=== PATIENT | female | born 1990 | race Caucasian/White ===

== ENCOUNTER 2017-01-09 09:16 | Emergency (ER) | payer BC ==
[~2017-01-09] VITALS: Ht 157.5 cm; Wt 50.3 kg
[~2017-01-09 09:16] MED LIST: OMEP40CA PO; ONDA8TAB62 SL; PROM1SUP19 PR
[2017-01-09 09:18] VITALS: TEMP 36.7; Ht 157.5 cm; Wt 50.3 kg
[2017-01-09] MEDS ORDERED: KETOROLAC TROMETHAMINE 30 MG/ML VIAL IV STA (10:07)
[2017-01-09] MEDS ORDERED: SODIUM CHLORIDE 0.9% 1000ML 1,000 ML IV STA (10:07)
[2017-01-09 10:28] LABS: MANUAL MICROSCOPIC REQUIRED? YES; URINE APPEARANCE CLOUDY (CLEAR); URINE BILIRUBIN NEG (NEG); URINE COLOR RED; URINE NITRITE NEG (NEG); URINE SPECIFIC GRAVITY 1.015 (1.000-1.030); UROBILINOGEN POS (NEG)
[2017-01-09 10:47] LABS: REVIEW REQ? NO
[2017-01-09 10:56] LABS: URINE BACTERIA NEG (NEG); URINE MUCUS PRESENT (NONE PRSENT); URINE RBC >30 /hpf (0-4)
[2017-01-09 11:30] LABS: BENZODIAZEPINE, URINE NEG (NEG); COCAINE,URINE NEG (NEG); PHENCYCLIDINE, URINE NEG (NEG)
[2017-01-09 11:40] VITALS: BP 135/74; PULSE 80; O2SAT 98
--- NOTE | 2017-01-09 11:43 | DIAGNOSTIC IMAGING REPORT ---
ABDOMEN AND PELVIS CT WITHOUT CONTRAST CT DOSE: 372.37 mGy.cm HISTORY: Right flank pain. TECHNIQUE: Multiaxial CT images of the abdomen and pelvis were performed without the use of intravenous and oral contrast according to the standard department stone protocol. COMPARISON STUDY: Abdomen and pelvis CT 08/08/2016. FINDINGS: The lung bases are clear. The unenhanced liver, spleen, pancreas, and adrenal glands are unremarkable. No renal stones or hydronephrosis. No bowel wall thickening or obstruction. The pelvic organs are unremarkable. No suspicious lytic or blastic osseous lesions. The appendix is surgically absent. Cholecystectomy. IMPRESSION: No renal stones or hydronephrosis. Electronically signed by: Candido Juan M.D. 01/09/2017 11:41 AM Dictated Date/Time: 01/09/2017 11:28 AM
[2017-01-09 11:59] LABS: BUN/CREATININE RATIO 23.3 (10-20); CALCIUM 9.3 mg/dl (8.5-10.1); CREATININE 0.75 mg/dl (0.60-1.20); POTASSIUM 3.3 mmol/L (3.5-5.1)
[2017-01-09 12:09] LABS: HEMATOCRIT 39.7 % (37-47); MEAN CELL VOLUME 88.2 fL (80-100); MEAN CORPUSCULAR HEMOGLOBIN 32.4 pg (25-34); MEAN CORPUSCULAR HGB CONC 36.8 g/dl (32-36); MEAN PLATELET VOLUME 10.9 fL (7.4-10.4); PLATELET COUNT 213 K/uL (130-400)
[2017-01-09 12:18] LABS: COMPLETE YES; EOSINOPHIL % 0.9 %; LYMPH ABS # 2.35 K/uL (1.2-3.4); LYMPHOCYTE % 45.1 %; NEUTROPHILS % 32.7 %; VARIANT LYM ABS # 0.74 K/uL; VARIANT LYMPHOCYTE % 14.2 %
--- NOTE | 2017-01-09 16:35 | EMERGENCY ROOM VISIT NOTE ---
History Report prepared by Christin: Charlee Cummins Under the Supervision of: Dr. Madhav Walker M.D. First contact with patient: 09:30 Chief Complaint: URINARY SYMPTOMS Stated Complaint: SHARP PAIN IN RIGHT SIDE OF ABD, NAUSEA Nursing Triage Summary: uti symptoms started yesterday. frequent urination, painful. this morning I saw blood in my pee History of Present Illness The patient is a 26 year old female who presents to the Emergency Room with complaints of intermittent right flank pain that began a couple of days ago. She notes that the pain is sharp and lasts for several hours at a time. Yesterday, her pain was worse. She notes that her pain is worse when she urinates. She denies dysuria. Early this morning around 2:30AM, she had a fever of 101 and took Tylenol. When she woke up this morning, she noticed some blood in her urine. The patient believes she has a history of kidney stones. There is a family history of kidney stones. The patient has chronic abdominal pain for which she follows up with Dr. Flannery of GI. She has a history of H. pylori and gastric ulcers. Her chronic abdominal pain is typically diffuse and not localized to her right side. Denies vomiting or other complaints. Source of History: patient Onset: a couple days ago Position: other (right flank) Quality: sharp Timing: intermittent Modifying Factors (Worsening): urination Associated Symptoms: + fevers (temp of 101), + urinary symptoms (hematuria) , No vomiting Review of Systems See HPI for pertinent positives & negatives. A total of 10 systems reviewed and were otherwise negative. Past Medical & Surgical Medical Problems: (1) Abdominal pain (2) Chronic constipation (3) Depression (4) Epigastric abdominal pain (5) Fall down stairs (6) GERD (gastroesophageal reflux disease) (7) H. pylori infection (8) Head pain (9) Herniated nucleus pulposis of lumbosacral region (10) Hx of migraines (11) Nausea & vomiting (12) Neck pain (13) Symptoms involving urinary system (14) Urinary tract infection Surgical Problems: (1) H/O colonoscopy (2) H/O esophagogastroduodenoscopy (3) Hx of umbilical hernia repair (4) Previous section (5) S/P appendectomy (6) S/P appendectomy (7) S/P section (8) S/P cholecystectomy (9) S/P laparoscopic cholecystectomy (10) S/P tonsillectomy Family History Cancer Diabetes mellitus Gallbladder disease Hypertension Kidney disease Kidney stones Social History Smoking Status: Current Every Day Smoker Alcohol Use: occasionally Drug Use: cocaine, marijuana Marital Status: Housing Status: lives with family Occupation Status: other Current/Historical Medications Scheduled Omeprazole (Prilosec), 40 MG PO BID Scheduled PRN Lorazepam (Ativan), 1 MG PO BID PRN for Anxiety Allergies Coded Allergies: Prochlorperazine (Verified Allergy, Intermediate, Panic Attack, 10/03/16) Acetaminophen (Unverified Allergy, Unknown, unknown, 10/03/16) Polyethylene Glycol (Unverified Allergy, Unknown, UNKNOWN, 10/03/16) Sodium Sulfate (Unverified Allergy, Unknown, UNKNOWN, 10/03/16) Hydrocodone (Verified Adverse Reaction, Unknown, gi upset/emesis, 10/03/16 ) pt Uncoded Allergies: BOWEL PREP (Allergy, Unknown, HIVES, 01/10/15) Physical Exam Vital Signs Date Time Temp Pulse Resp B/P Pulse Ox O2 Delivery O2 Flow Rate FiO2 01/09/17 11:40 80 16 135/74 98 Room Air 01/09/17 09:18 36.7 110 18 113/81 98 Room Air Physical Exam Constitutional: Vital signs reviewed. Eyes: Pupils are equal round reactive to light. Conjunctiva are noninjected. ENT: Pharynx is clear without erythema or exudate. Mucous membranes are moist. Neck supple without meningeal signs. Respiratory: Clear to auscultation bilaterally. Breath sounds are equal bilaterally. Cardiovascular: Regular rate and rhythm. No rubs or gallops. GI: Soft, nondistended and nontender. Bowel sounds are present. Musculoskeletal: No peripheral edema. No lower extremity tenderness. No CVA tenderness. Integumentary: No cyanosis. Neurological: The patient is awake and alert. No focal deficits. Psychiatric: Normal affect. Medical Decision & Procedures ER Provider Diagnostic Interpretation: Radiology results as stated below per my review and the radiologist's interpretation: ABDOMEN AND PELVIS CT WITHOUT CONTRAST CT DOSE: 372.37 mGy.cm HISTORY: Right flank pain. TECHNIQUE: Multiaxial CT images of the abdomen and pelvis were performed without the use of intravenous and oral contrast according to the standard department stone protocol. COMPARISON STUDY: Abdomen and pelvis CT 08/08/2016. FINDINGS: The lung bases are clear. The unenhanced liver, spleen, pancreas, and adrenal glands are unremarkable. No renal stones or hydronephrosis. No bowel wall thickening or obstruction. The pelvic organs are unremarkable. No suspicious lytic or blastic osseous lesions. The appendix is surgically absent. Cholecystectomy. IMPRESSION: No renal stones or hydronephrosis. Electronically signed by: Candido Juan M.D. 01/09/2017 11:41 AM Dictated Date/Time: 01/09/2017 11:28 AM Laboratory Results 01/09/17 10:55 Red Blood Count 4.50, Mean Corpuscular Volume 88.2, Mean Corpuscular Hemoglobin 32.4, Mean Corpuscular Hemoglobin Concent 36.8, Mean Platelet Volume 10.9 01/09/17 10:55 Test 01/09/17 10:00 01/09/17 10:55 Urine Color RED Urine Appearance CLOUDY (CLEAR) Urine pH 7.0 (4.5-7.5) Urine Specific [place] 1.015 (1.000-1.030) Urine Protein 2+ (NEG) Urine Glucose (UA) NEG (NEG) Urine Ketones 2+ (NEG) Urine Occult Blood 3+ (NEG) Urine Nitrite NEG (NEG) Urine Bilirubin NEG (NEG) Urine Urobilinogen POS (NEG) Urine Leukocyte Esterase NEG (NEG) Urine RBC >30 /hpf (0-4) Urine WBC 1-5 /hpf (0-5) Urine Epithelial Cells >30 /lpf (0-5) Urine Bacteria NEG (NEG) Urine Mucus PRESENT (NONE PRSENT) Urine Test NEG (NEG) Urine Opiates Screen NEG (NEG) Urine Methadone, Qualitative NEG (NEG) Urine Barbiturates NEG (NEG) Urine Phencyclidine (PCP) Level NEG (NEG) Ur Amphetamine/Methamphetamine POS (NEG) MDMA (Ecstasy) Screen NEG (NEG) Urine Benzodiazepines Screen NEG (NEG) Urine Cocaine Metabolite NEG (NEG) Urine Marijuana (THC) POS (NEG) White Blood Count 5.20 K/uL (4.8-10.8) Red Blood Count 4.50 M/uL (4.2-5.4) Hemoglobin 14.6 g/dL (12.0-16.0) Hematocrit 39.7 % (37-47) Mean Corpuscular Volume 88.2 fL (80-100) Mean Corpuscular Hemoglobin 32.4 pg (25-34) Mean Corpuscular Hemoglobin Concent 36.8 g/dl (32-36) Platelet Count 213 K/uL (130-400) Mean Platelet Volume 10.9 fL (7.4-10.4) RDW Standard Deviation 39.8 fL (36.4-46.3) RDW Coefficient of Variation 12.4 % (11.5-14.5) Nucleated RBC Absolute Count (auto) 0.00 K/uL (0-0) Neutrophils % (Manual) 32.7 % Lymphocytes % (Manual) 45.1 % Variant Lymphocytes % (manual) 14.2 % Monocytes % (Manual) 7.1 % Eosinophils % (Manual) 0.9 % Nucleated Red Blood Cells % 0.0 % Neutrophils # (Manual) 1.70 K/uL (1.4-6.5) Total Absolute Neutrophils 1.70 K/uL (1.4-6.5) Lymphocytes # (Manual) 2.35 K/uL (1.2-3.4) Absolute Variant Lymphocytes 0.74 K/uL Total Absolute Lymphocytes 3.08 K/uL (1.2-3.4) Monocytes # (Manual) 0.37 K/uL (0.11-0.59) Eosinophils # (Manual) 0.05 K/uL (0-0.5) Red Blood Cell Morphology Unremarkable Anion Gap 11.0 mmol/L (3-11) Est Creatinine Clear Calc Drug Dose 88.4 ml/min Estimated GFR () 125.7 Estimated GFR (Non- 108.5 BUN/Creatinine Ratio 23.3 (10-20) Calcium Level 9.3 mg/dl (8.5-10.1) Total Bilirubin 2.5 mg/dl (0.2-1) Direct Bilirubin 0.2 mg/dl (0-0.2) Aspartate Amino Transf (AST/SGOT) 13 U/L (15-37) Alanine Aminotransferase (ALT/SGPT) 18 U/L (12-78) Alkaline Phosphatase 61 U/L (45-117) Total Protein 7.4 gm/dl (6.4-8.2) Albumin 4.1 gm/dl (3.4-5.0) Lipase 124 U/L (73-393) Laboratory results as reviewed by me. Medications Administered Medications (Trade) Dose Ordered Sig/Lindsey Route Start Time Stop Time Status Last Admin Dose Admin Ketorolac Tromethamine 10 mg 10 mg NOW STAT IV 01/09/17 10:07 01/09/17 10:10 DC 01/09/17 11:04 10 MG Sodium Chloride (Nss 1000ml) 1,000 ml @ 999 mls/hr Q1H1M STAT IV 01/09/17 10:07 01/09/17 11:07 DC 01/09/17 10:07 999 MLS/HR ED Course 1003: The patient was evaluated in room B3. A complete history and physical exam was performed. 1007: Ordered NSS 1000 ml @ 999 mls/hr IV, Toradol Inj 10 mg IV. 1235: I reassessed the patient and discussed test results. The patient refused urine catheterization but she denies dysuria. She will follow up with her doctor. The patient was discharged home Medical Decision This is a 26-year-old female who presents with right-sided flank pain. Differential diagnosis includes renal colic, hydronephrosis, UTI, pyelonephritis , ectopic , ovarian cyst. I did perform a limited focused review of portions of the patient's old chart on the electronic medical record. She was here for abdominal pain in September of last year. She has a history of chronic abdominal pain. She had a positive urine tox screen for cocaine and marijuana. She is followed by Dr. Flannery of GI for her abdominal pain. She had a CT scan of the abdomen and pelvis in July of last year which showed no acute findings. I did evaluate the patient as noted above. IV access was established. I did treat the patient with IV Toradol and normal saline IV. I did order and personally review the patient's urinalysis as described above. It does appear to be a contaminated specimen but there is no evidence of nitrites or leukocyte esterase. No increased wbc's. I did order a cath urine specimen but the patient refused. A urine culture was sent. The patient denies having any frequency, urgency or burning on urination. I did order and review the patient' s blood work as noted in the electronic medical record. Her white blood cell count is not elevated. After discussion with the patient, I did order a CT of the abdomen and pelvis. I did review the images myself as well as the radiology report as described above. There is no evidence of acute intra- abdominal or pelvic process. I did discuss the test results with the patient. I did recommend close follow up with her doctor. She was discharged in good condition. Impression Primary Impression: Right flank pain Scribe Attestation The scribe's documentation has been prepared under my direct and personally reviewed by me in its entirety. I confirm that the note above accurately reflects all work, treatment, procedures, and medical decision making performed by me. Departure Information Dispostion Home / Self-Care Referrals Edwin Sauer M.D. (PCP) Patient Instructions ED Flank Pain Uncertain Cause, My [facility] Additional Instructions You have been examined and treated today on an emergency basis only. This is not a substitute for, or an effort to provide, complete comprehensive medical care. It is impossible to recognize and treat all injuries or illnesses in a single emergency department visit. It is therefore important that you follow up closely with your physician and/or GI physician. Call as soon as possible for an appointment. Return for worsening symptoms or if you develop fever, vomiting , or any other concerning symptoms.
--- NOTE | 2017-01-11 14:24 | Pharmacy Progress Note ---
ED Pharmacist Culture FollowUp Date of Service: Jan 11, 2017. Urine cx obtained 01/09/17 is growing CoN Staph not saprophytic. Per provider's note, it was not believed the patient had a UTI as she had no c/ o frequency, urgency or burning on urination. Also her UA was negative for Nitrates and LE, only had 1-5 WBC and there were > 30epis present likely indicating contamination w/ skin fouzia. No action required as this is likely a contaminant.
[2017-03-20] MEDS ORDERED: ATV/1 PO (01:14)
[2017-03-20] MEDS ORDERED: OMEP40CA41 PO (10:09)
== END 2017-01-09 12:49 | disposition home or self-care (01) ==
LOC: C.EDB 09:17
DX: R10.9 Unspecified abdominal pain (principal); K21.9 Gastro-esophageal reflux disease without esophagitis; F17.200 Nicotine dependence, unspecified, uncomplicated; Z87.442 Personal history of urinary calculi; Z87.19 Personal history of other diseases of the digestive system; Z84.1 Family history of disorders of kidney and ureter; Z83.3 Family history of diabetes mellitus; Z82.49 Family history of ischemic heart disease and other diseases of the circulatory system

== ENCOUNTER 2017-03-03 08:45 | Emergency (ER) | payer BC ==
[~2017-03-03] VITALS: Ht 154.9 cm; Wt 51.8 kg
[2017-03-03 08:47] VITALS: TEMP 36.3; Ht 154.9 cm; Wt 51.8 kg
[2017-03-03] MEDS ORDERED: AMPICILLIN/SULBACTAM SOD INJ 1,500 MG in SODIUM CHLORIDE 0.9% 50ML 50 ML IV STA (09:24)
[2017-03-03] MEDS ORDERED: ONDANSETRON INJ 2 MG/ML 2 ML VIAL IV STA (09:24)
[2017-03-03] MEDS ORDERED: SODIUM CHLORIDE 0.9% 1000ML 1,000 ML IV STA ×2 (09:24)
[2017-03-03] MEDS ORDERED: KETOROLAC TROMETHAMINE 30 MG/ML VIAL IV STA (09:28)
[2017-03-03 09:34] LABS: BASO % 0.1 %; BASO ABS # 0.01 K/uL (0-0.2); COMPLETE YES; EOS % 0.5 %; HEMATOCRIT 44.7 % (37-47); IG% 0.3 %; LYMPH % 23.4 %; LYMPH ABS # 3.34 K/uL (1.2-3.4); MEAN CELL VOLUME 90.5 fL (80-100); MEAN CORPUSCULAR HGB CONC 36.5 g/dl (32-36); MEAN PLATELET VOLUME 11.6 fL (7.4-10.4); MONO % 6.7 %; PLATELET COUNT 214 K/uL (130-400); RED BLOOD COUNT 4.94 M/uL (4.2-5.4); WHITE BLOOD COUNT 14.26 K/uL (4.8-10.8)
[2017-03-03 09:42] LABS: BUN/CREATININE RATIO 8.4 (10-20); CALCIUM 9.6 mg/dl (8.5-10.1); CREATININE 0.82 mg/dl (0.60-1.20); POTASSIUM 3.8 mmol/L (3.5-5.1)
[2017-03-03 09:45] LABS: ALB/GLOB RATIO 1.2 (0.9-2)
--- NOTE | 2017-03-03 10:26 | EMERGENCY ROOM VISIT NOTE ---
History Report prepared by Ljibcesario: Hector Roche Under the Supervision of: Dr. Scottie Godinez M.D. First contact with patient: 09:20 Chief Complaint: VOMITING Stated Complaint: VOMITING, PAIN ALL OVER, FEVER, FEELING FAINT Nursing Triage Summary: Pt states she woke up this morning and had three episodes of vomiting and pain in her jaw. Pt states, "I don't know if I have an infection in my tooth (pointing to left front tooth)." History of Present Illness The patient is a 26 year old female who presents to the Emergency Room with complaints of recurrent vomiting that started this morning. The patient had three episodes of vomiting. She woke up with chills and nausea. The patient denies cough, congestion, sore throat, rhinorrhea, abdominal pain, or urinary symptoms. She notes that she has left upper dental pain, especially with chewing. She has not been on an antibiotics for the tooth but she has been for past dental infections. The patient recently switched to a new dentist. She denies the possibility of . Source of History: patient Onset: this morning Position: other (GI) Quality: other (vomiting) Timing: other (three episodes) Associated Symptoms: + chills, + nausea, No abdominal pain, No cough, No sorethroat, No urinary symptoms Review of Systems See HPI for pertinent positives & negatives. A total of 10 systems reviewed and were otherwise negative. Past Medical & Surgical Medical Problems: (1) Abdominal pain (2) Chronic constipation (3) Depression (4) Epigastric abdominal pain (5) Fall down stairs (6) GERD (gastroesophageal reflux disease) (7) H. pylori infection (8) Head pain (9) Herniated nucleus pulposis of lumbosacral region (10) Hx of migraines (11) Nausea & vomiting (12) Neck pain (13) Symptoms involving urinary system (14) Urinary tract infection Surgical Problems: (1) H/O colonoscopy (2) H/O esophagogastroduodenoscopy (3) Hx of umbilical hernia repair (4) Previous section (5) S/P appendectomy (6) S/P appendectomy (7) S/P section (8) S/P cholecystectomy (9) S/P laparoscopic cholecystectomy (10) S/P tonsillectomy Family History Cancer Diabetes mellitus Gallbladder disease Hypertension Kidney disease Kidney stones Social History Smoking Status: Current Every Day Smoker Alcohol Use: occasionally Drug Use: cocaine, marijuana Marital Status: Housing Status: lives with family Occupation Status: other Current/Historical Medications Scheduled Amoxicillin & Pot Clavulanate (Augmentin 875-125 mg), 875 MG PO BID Omeprazole (Prilosec), 40 MG PO BID Scheduled PRN Lorazepam (Ativan), 1 MG PO BID PRN for Anxiety Promethazine Hcl (Phenergan), 25 MG PO Q6H PRN for Nausea Allergies Coded Allergies: Prochlorperazine (Verified Allergy, Intermediate, Panic Attack, 03/03/17) Acetaminophen (Unverified Allergy, Unknown, unknown, 03/03/17) Polyethylene Glycol (Unverified Allergy, Unknown, UNKNOWN, 03/03/17) Sodium Sulfate (Unverified Allergy, Unknown, UNKNOWN, 03/03/17) Hydrocodone (Verified Adverse Reaction, Unknown, gi upset/emesis, 03/03/17) pt Uncoded Allergies: BOWEL PREP (Allergy, Unknown, HIVES, 01/10/15) Physical Exam Vital Signs Date Time Temp Pulse Resp B/P Pulse Ox O2 Delivery O2 Flow Rate FiO2 03/03/17 12:54 97 95/64 99 03/03/17 11:33 101 16 101/65 98 Room Air 03/03/17 10:43 113 18 95/61 99 Room Air 03/03/17 08:47 36.3 110 20 110/76 100 Room Air Physical Exam GENERAL: Patient is in no acute distress. HEENT: No acute trauma, normocephalic atraumatic, mucous membranes moist, no nasal congestion, no scleral icterus, no throat erythema or exudate, poor dentition with a decaying left upper first incisor, no drainable abscess seen, no swelling to the floor of the mouth. NECK: No stridor, no adenopathy, no meningismus, trachea is midline. LUNGS: Clear to auscultation bilaterally, no wheeze, no rhonchi, breath sounds equal. HEART: Tachycardic with a regular rhythm and no murmurs. ABDOMEN: Soft, nontender, bowel sounds positive, no hernias, no peritonitis. EXTREMITIES: No cyanosis or edema, full range of motion of all the joints without pain or difficulty, no signs for acute trauma. NEUROLOGIC: Oriented x 3, no acute motor or sensory deficits, no focal weakness. SKIN: No rash, no jaundice, no diaphoresis. Medical Decision & Procedures Laboratory Results 03/03/17 09:00 Red Blood Count 4.94, Mean Corpuscular Volume 90.5, Mean Corpuscular Hemoglobin 33.0, Mean Corpuscular Hemoglobin Concent 36.5, Mean Platelet Volume 11.6, Neutrophils (%) (Auto) 69.0, Lymphocytes (%) (Auto) 23.4, Monocytes (%) (Auto) 6.7, Eosinophils (%) (Auto) 0.5, Basophils (%) (Auto) 0.1, Neutrophils # (Auto) 9.84, Lymphocytes # (Auto) 3.34, Monocytes # (Auto) 0.96, Eosinophils # (Auto) 0.07, Basophils # (Auto) 0.01 03/03/17 09:00 Test 03/03/17 09:00 03/03/17 11:36 White Blood Count 14.26 K/uL (4.8-10.8) Red Blood Count 4.94 M/uL (4.2-5.4) Hemoglobin 16.3 g/dL (12.0-16.0) Hematocrit 44.7 % (37-47) Mean Corpuscular Volume 90.5 fL (80-100) Mean Corpuscular Hemoglobin 33.0 pg (25-34) Mean Corpuscular Hemoglobin Concent 36.5 g/dl (32-36) Platelet Count 214 K/uL (130-400) Mean Platelet Volume 11.6 fL (7.4-10.4) Neutrophils (%) (Auto) 69.0 % Lymphocytes (%) (Auto) 23.4 % Monocytes (%) (Auto) 6.7 % Eosinophils (%) (Auto) 0.5 % Basophils (%) (Auto) 0.1 % Neutrophils # (Auto) 9.84 K/uL (1.4-6.5) Lymphocytes # (Auto) 3.34 K/uL (1.2-3.4) Monocytes # (Auto) 0.96 K/uL (0.11-0.59) Eosinophils # (Auto) 0.07 K/uL (0-0.5) Basophils # (Auto) 0.01 K/uL (0-0.2) RDW Standard Deviation 40.7 fL (36.4-46.3) RDW Coefficient of Variation 12.3 % (11.5-14.5) Immature Granulocyte % (Auto) 0.3 % Immature Granulocyte # (Auto) 0.04 K/uL (0.00-0.02) Anion Gap 7.0 mmol/L (3-11) Est Creatinine Clear Calc Drug Dose 77.0 ml/min Estimated GFR () 112.9 Estimated GFR (Non- 97.4 BUN/Creatinine Ratio 8.4 (10-20) Calcium Level 9.6 mg/dl (8.5-10.1) Total Bilirubin 1.1 mg/dl (0.2-1) Aspartate Amino Transf (AST/SGOT) 9 U/L (15-37) Alanine Aminotransferase (ALT/SGPT) 18 U/L (12-78) Alkaline Phosphatase 67 U/L (45-117) Total Protein 8.5 gm/dl (6.4-8.2) Albumin 4.7 gm/dl (3.4-5.0) Globulin 3.8 gm/dl (2.5-4.0) Albumin/Globulin Ratio 1.2 (0.9-2) Urine Color YELLOW Urine Appearance CLOUDY (CLEAR) Urine pH 7.5 (4.5-7.5) Urine Specific [place] 1.010 (1.000-1.030) Urine Protein NEG (NEG) Urine Glucose (UA) NEG (NEG) Urine Ketones NEG (NEG) Urine Occult Blood NEG (NEG) Urine Nitrite NEG (NEG) Urine Bilirubin NEG (NEG) Urine Urobilinogen NEG (NEG) Urine Leukocyte Esterase NEG (NEG) Urine WBC (Auto) 5-10 /hpf (0-5) Urine RBC (Auto) 0-4 /hpf (0-4) Urine Hyaline Casts (Auto) 1-5 /lpf (0-5) Urine Epithelial Cells (Auto) >30 /lpf (0-5) Urine Bacteria (Auto) 2+ (NEG) Laboratory results reviewed by me. Medications Administered Medications (Trade) Dose Ordered Sig/Lindsey Route Start Time Stop Time Status Last Admin Dose Admin Ondansetron HCl 4 mg 4 mg NOW STAT IV 03/03/17 09:24 03/03/17 09:26 DC 03/03/17 09:35 4 MG Sodium Chloride 1,000 ml @ 999 mls/hr Q1H1M STAT IV 03/03/17 09:24 03/03/17 10:24 DC 03/03/17 09:34 999 MLS/HR Sodium Chloride 1,000 ml @ 200 mls/hr Q5H STAT IV 03/03/17 09:24 03/03/17 13:34 DC 03/03/17 10:38 200 MLS/HR Ampicillin Sodium/ Sulbactam Sodium/ Sodium Chloride (Unasyn Inj/Nss 50ml) 54 ml @ 100 mls/hr NOW STAT IV 03/03/17 09:24 03/03/17 09:56 DC 03/03/17 09:44 100 MLS/HR Ketorolac Tromethamine 30 mg 30 mg NOW STAT IV 03/03/17 09:28 03/03/17 09:29 DC 03/03/17 09:35 30 MG Promethazine HCl/ Sodium Chloride (Phenergan Inj/ Nss 50ml) 50.5 ml @ 204 mls/hr NOW STAT IV 03/03/17 10:56 03/03/17 11:10 DC 03/03/17 11:31 204 MLS/HR Morphine Sulfate (MoRPHine SULFATE INJ) 4 mg Q15M PRN IV 03/03/17 11:00 03/03/17 13:34 DC 03/03/17 11:31 4 MG Oxycodone HCl (Roxicodone Immediate Rel 5MG Home Pack) 1 homepack UD ONCE PO 03/03/17 12:30 03/03/17 12:31 DC 03/03/17 12:48 1 HOMEPACK ED Course 0923: The patient was evaluated in room B9. A complete history and physical exam was performed. 0924: Ampicillin sodium / Sulbactam Sodium 1500 mg / NSS 54 ml @ 100 mls/hr IV, NSS 1000 ml @ 200 mls/hr, NSS 1000 ml @ 999 mls/hr, Zofran 4 mg IV. 0928: Toradol 30 mg IV. 1056: Promethazine 12.5 mg / NSS 50.5 ml @ 204 mls/hr 1100: Morphine Sulfate 4 mg IV. 1222: The prescription drug monitoring program was evaluated for this patient. No issues identified. 1230: Oxycodone IR 5 mg PO homepack. Medical Decision Differential diagnosis includes dehydration, dental abscess, dental infection, electrolyte imbalance, anemia, UTI, viral illness. There is a moderate leukocytosis which could be consistent with infection or maybe just her vomiting. No anemia. No significant electrolyte abnormality, kidney failure or hepatitis. Urinalysis shows contamination, no obvious infection. The patient received IV saline, IV Zofran, IV Toradol and IV Unasyn. She eventually was given a dose of IV Phenergan and IV morphine. The patient feels improved and is doing well. Her vital signs have improved. She is being discharged on Augmentin twice a day for 10 days. Phenergan for nausea. An oxycodone home pack was given for pain control. She will see a dentist as soon as possible and return here for worsening symptoms. Patient appears to have a dental infection, she has been treated and is feeling improved. [place] Drug Monitoring Program Search Results: patient reviewed within database, no issues identified Impression Primary Impression: Vomiting Additional Impressions: Dehydration Dental infection Scribe Attestation The scribe's documentation has been prepared under my direction and personally reviewed by me in its entirety. I confirm that the note above accurately reflects all work, treatment, procedures, and medical decision making performed by me. Departure Information Dispostion Home / Self-Care Prescriptions Promethazine Hcl (Phenergan) 25 Mg Tab 25 MG PO Q6H Y for Nausea, #15 TAB Prov: Scottie Godinez M.D. 03/03/17 Amoxicillin & Pot Clavulanate (Augmentin 875-125 mg) 1 Tab Tab 875 MG PO BID for 10 Days, #20 TAB Prov: Scottie Godinez M.D. 03/03/17 Referrals Edwin Sauer M.D. (PCP) Forms HOME CARE DOCUMENTATION FORM, IMPORTANT VISIT INFORMATION, Work Instructions Patient Instructions My [facility] Additional Instructions fluids rest oxy ir 1 tab every 4 hours for pain use otc pain meds warm compresses may help phenergan 1 tab every 6 hours for nausea augmentin 2x per day for 10 days return if worsening see dentist jasmine as discussed Problem Qualifiers
[2017-03-03] MEDS ORDERED: PROMETHAZINE HCL INJ 12.5 MG in SODIUM CHLORIDE 0.9% 50ML 50 ML IV STA (10:56)
[2017-03-03] MEDS ORDERED: MoRPHine SULFATE 4 MG/ML 1 ML CARP\\VIAL IV PRN (11:00)
[2017-03-03 11:57] LABS: URINE APPEARANCE CLOUDY (CLEAR); URINE BILIRUBIN NEG (NEG); URINE COLOR YELLOW; URINE EPITHELIAL CELL AUTO >30 /lpf (0-5); URINE NITRITE NEG (NEG); URINE PH 7.5 (4.5-7.5); UROBILINOGEN NEG (NEG); ZZUR CULT IF INDIC CLEAN CATCH YES
[2017-03-03 11:58] LABS: MANUAL MICROSCOPIC REQUIRED? NO; REVIEW REQ? NO
[2017-03-03] MEDS ORDERED: AMOX875T PO (12:27)
[2017-03-03] MEDS ORDERED: PROM25TA9 PO (12:27)
[2017-03-03] MEDS ORDERED: OXYCODONE IR HOME PACK PO ONE (12:30)
[2017-03-03 12:54] VITALS: BP 95/64; PULSE 97; O2SAT 99
[2017-03-20] MEDS ORDERED: ATV/1 PO (01:14)
[2017-03-20] MEDS ORDERED: OMEP40CA41 PO (10:09)
== END 2017-03-03 12:55 | disposition home or self-care (01) ==
LOC: C.EDB 08:47
DX: R11.2 Nausea with vomiting, unspecified (principal); E86.0 Dehydration; K04.7 Periapical abscess without sinus; K21.9 Gastro-esophageal reflux disease without esophagitis; F17.200 Nicotine dependence, unspecified, uncomplicated; Z87.440 Personal history of urinary (tract) infections; Z86.19 Personal history of other infectious and parasitic diseases; Z91.81 History of falling; Z90.49 Acquired absence of other specified parts of digestive tract; Z98.891 History of uterine scar from previous surgery; Z90.89 Acquired absence of other organs; Z98.890 Other specified postprocedural states; Z83.3 Family history of diabetes mellitus; Z82.49 Family history of ischemic heart disease and other diseases of the circulatory system; Z84.1 Family history of disorders of kidney and ureter; Z79.899 Other long term (current) drug therapy

== ENCOUNTER 2017-03-20 21:46 | Emergency (ER) | payer BC ==
[~2017-03-20] VITALS: Ht 154.9 cm; Wt 51.3 kg
[~2017-03-20 21:46] MED LIST changes: +ATV/1 PO; -OMEP40CA PO; +OMEP40CA41 PO; -ONDA8TAB62 SL; -PROM1SUP19 PR; +PROM25TA9 PO
[2017-03-20 21:51] VITALS: TEMP 36.7; Ht 154.9 cm; Wt 51.3 kg
[2017-03-20] MEDS ORDERED: ONDANSETRON INJ 2 MG/ML 2 ML VIAL IV STA (22:05)
[2017-03-20] MEDS ORDERED: SODIUM CHLORIDE 0.9% 1000ML 1,000 ML IV STA (22:05)
[2017-03-20] MEDS ORDERED: CLINDAMYCIN IV 900 MG in DEXTROSE 5% ADD-VANTAGE 100ML 100 ML IV ONE (22:15)
[2017-03-20 22:24] LABS: BASO % 0.4 %; BASO ABS # 0.03 K/uL (0-0.2); COMPLETE YES; EOS % 1.9 %; HEMATOCRIT 40.3 % (37-47); IG% 0.1 %; LYMPH % 47.9 %; LYMPH ABS # 3.75 K/uL (1.2-3.4); MEAN CELL VOLUME 91.8 fL (80-100); MEAN CORPUSCULAR HEMOGLOBIN 32.1 pg (25-34); MONO % 8.8 %; NEUT % 40.9 %; PLATELET COUNT 196 K/uL (130-400); RED BLOOD COUNT 4.39 M/uL (4.2-5.4); WHITE BLOOD COUNT 7.83 K/uL (4.8-10.8)
[2017-03-20] MEDS ORDERED: PROM25TA16 PO (22:24)
[2017-03-20 22:47] LABS: CALCIUM 8.7 mg/dl (8.5-10.1)
[2017-03-20 22:48] LABS: BUN/CREATININE RATIO 17.9 (10-20); CREATININE 0.87 mg/dl (0.60-1.20); POTASSIUM 3.8 mmol/L (3.5-5.1)
[2017-03-20] MEDS ORDERED: CLIN300C2 PO (23:16)
--- NOTE | 2017-03-20 23:16 | EMERGENCY ROOM VISIT NOTE ---
History First contact with patient: 21:58 Chief Complaint: DENTAL PAIN Stated Complaint: TOOTH PAIN Nursing Triage Summary: pus and blood coming from front upper tooth. hx abcess. +fevers. History of Present Illness The patient is a 26 year old female who presents to the Emergency Room with complaints of left upper dental pain for the past several days. The patient states she was seen here earlier this month for an infection in this tooth. At that time, she received IV antibiotics and was discharged to follow-up with a dentist. She did contact a dentist and they were not able to make an appointment until next week. The patient states that she has pain in her left upper front tooth. She reports that at times, there is discharge of pus and blood from the tooth itself. She rates her overall discomfort a 7/10. She denies any swelling of the jaw, neck pain, difficulty swallowing, difficulty opening her mouth or fevers. Review of Systems A complete 10 point review of systems was reviewed with the patient with pertinent positives and negatives as per history of present illness. All else were negative. Past Medical/Surgical History Medical Problems: (1) Abdominal pain (2) Chronic constipation (3) Depression (4) Epigastric abdominal pain (5) Fall down stairs (6) GERD (gastroesophageal reflux disease) (7) H. pylori infection (8) Head pain (9) Herniated nucleus pulposis of lumbosacral region (10) Hx of migraines (11) Nausea & vomiting (12) Neck pain (13) Symptoms involving urinary system (14) Urinary tract infection Surgical Problems: (1) H/O colonoscopy (2) H/O esophagogastroduodenoscopy (3) Hx of umbilical hernia repair (4) Previous section (5) S/P appendectomy (6) S/P appendectomy (7) S/P section (8) S/P cholecystectomy (9) S/P laparoscopic cholecystectomy (10) S/P tonsillectomy Family History Cancer Diabetes mellitus Gallbladder disease Hypertension Kidney disease Kidney stones Social History Smoking Status: Current Every Day Smoker Alcohol Use: occasionally Drug Use: cocaine, marijuana Marital Status: Housing Status: lives with family Occupation Status: other Current/Historical Medications Scheduled Clindamycin Hcl (Cleocin), 300 MG PO QID Omeprazole (Prilosec), 40 MG PO BID Scheduled PRN Lorazepam (Ativan), 1 MG PO BID PRN for Anxiety Promethazine HCl (Promethazine HCl), 25 MG PO Q6H PRN for Nausea Allergies Coded Allergies: Prochlorperazine (Verified Allergy, Intermediate, Panic Attack, 03/03/17) Acetaminophen (Unverified Allergy, Unknown, unknown, 03/03/17) Polyethylene Glycol (Unverified Allergy, Unknown, UNKNOWN, 03/03/17) Sodium Sulfate (Unverified Allergy, Unknown, UNKNOWN, 03/03/17) Hydrocodone (Verified Adverse Reaction, Unknown, gi upset/emesis, 03/03/17) pt Uncoded Allergies: BOWEL PREP (Allergy, Unknown, HIVES, 01/10/15) Physical Exam Vital Signs Date Time Temp Pulse Resp B/P Pulse Ox O2 Delivery O2 Flow Rate FiO2 03/20/17 23:23 72 20 124/70 98 03/20/17 21:51 36.7 90 18 101/69 98 Physical Exam VITALS: Vitals are noted on the nurse's note and reviewed by myself. Vital signs stable. GENERAL: This is a 26-year-old female, in no acute distress, nondiaphoretic, well-developed well-nourished. SKIN: The skin was without rashes, erythema, edema, or bruising. There is no tenting of the skin. Capillary reflex less than 2 seconds. HEAD: Normocephalic atraumatic. EARS: External auditory canals clear, tympanic membranes pearly rodriguez without erythema or effusion bilaterally. EYES: Pupils equal round and reactive to light and accommodation. NOSE: Patent, turbinates without inflammation or discharge. No sinus tenderness. MOUTH: Mucous membranes moist. Report dentition noted. There is a decaying, broken off left lateral incisor which does drain a small amount of whitish pus directly from the tooth. NECK: Supple without nuchal rigidity. No lymphadenopathy. HEART: Regular rate and rhythm without murmurs gallops or rubs. LUNGS: Clear to auscultation bilaterally without wheezes, rales or rhonchi. NEURO: Patient was alert and oriented to person place and time. Medical Decision & Procedures Laboratory Results 03/20/17 22:15 Red Blood Count 4.39, Mean Corpuscular Volume 91.8, Mean Corpuscular Hemoglobin 32.1, Mean Corpuscular Hemoglobin Concent 35.0, Mean Platelet Volume 11.0, Neutrophils (%) (Auto) 40.9, Lymphocytes (%) (Auto) 47.9, Monocytes (%) (Auto) 8.8, Eosinophils (%) (Auto) 1.9, Basophils (%) (Auto) 0.4, Neutrophils # (Auto) 3.20, Lymphocytes # (Auto) 3.75, Monocytes # (Auto) 0.69, Eosinophils # (Auto) 0.15, Basophils # (Auto) 0.03 03/20/17 22:15 Test 03/20/17 22:15 White Blood Count 7.83 K/uL (4.8-10.8) Red Blood Count 4.39 M/uL (4.2-5.4) Hemoglobin 14.1 g/dL (12.0-16.0) Hematocrit 40.3 % (37-47) Mean Corpuscular Volume 91.8 fL (80-100) Mean Corpuscular Hemoglobin 32.1 pg (25-34) Mean Corpuscular Hemoglobin Concent 35.0 g/dl (32-36) Platelet Count 196 K/uL (130-400) Mean Platelet Volume 11.0 fL (7.4-10.4) Neutrophils (%) (Auto) 40.9 % Lymphocytes (%) (Auto) 47.9 % Monocytes (%) (Auto) 8.8 % Eosinophils (%) (Auto) 1.9 % Basophils (%) (Auto) 0.4 % Neutrophils # (Auto) 3.20 K/uL (1.4-6.5) Lymphocytes # (Auto) 3.75 K/uL (1.2-3.4) Monocytes # (Auto) 0.69 K/uL (0.11-0.59) Eosinophils # (Auto) 0.15 K/uL (0-0.5) Basophils # (Auto) 0.03 K/uL (0-0.2) RDW Standard Deviation 41.1 fL (36.4-46.3) RDW Coefficient of Variation 12.0 % (11.5-14.5) Immature Granulocyte % (Auto) 0.1 % Immature Granulocyte # (Auto) 0.01 K/uL (0.00-0.02) Anion Gap 7.0 mmol/L (3-11) Est Creatinine Clear Calc Drug Dose 72.6 ml/min Estimated GFR () 105.1 Estimated GFR (Non- 90.7 BUN/Creatinine Ratio 17.9 (10-20) Calcium Level 8.7 mg/dl (8.5-10.1) Medications Administered Medications (Trade) Dose Ordered Sig/Lindsey Route Start Time Stop Time Status Last Admin Dose Admin Clindamycin Phosphate 900 mg/ Dextrose 106 ml @ 100 mls/hr ONE ONCE IV 03/20/17 22:15 03/20/17 23:18 DC 03/20/17 22:26 100 MLS/HR Sodium Chloride (Nss 1000ml) 1,000 ml @ 999 mls/hr Q1H1M STAT IV 03/20/17 22:05 03/20/17 23:05 DC 03/20/17 22:19 999 MLS/HR Ondansetron HCl (Zofran Inj) 4 mg NOW STAT IV 03/20/17 22:05 03/20/17 22:07 DC 03/20/17 22:17 4 MG Medical Decision Differential diagnosis includes dental abscess, facial cellulitis, sepsis, among others. The patient was evaluated as above. Labs were drawn. There is no leukocytosis. She is not febrile. She is not tachycardic. She was treated with clindamycin for an obvious dental infection. She will be placed on a course of clindamycin but will need follow-up with a dentist as soon as possible. The patient was instructed to return here for facial swelling, difficulty swallowing, high fevers or any other new/concerning symptoms. She verbalized understanding of my assessment and treatment plan and was discharged home in good condition. Impression Primary Impression: Dental abscess Departure Information Dispostion Home / Self-Care Condition GOOD Prescriptions Clindamycin Hcl (CLEOCIN) 300 Mg Cap 300 MG PO QID for 10 Days, #40 CAP Prov: Andree Gaffney ., MARIANNE 03/20/17 Referrals Edwin Sauer M.D. (PCP) Patient Instructions My [facility] Additional Instructions You have been treated in the Emergency Department for Dental Pain. You were prescribed clindamycin to be taken 4 times daily as prescribed. This is an antibiotic. All antibiotics have the potential to cause diarrhea. Stop this medication and contact a medical provider if you were to develop any significant adverse side effects including: wheezing, shortness of breath, passing out, vomiting, or a diffuse rash. Always take antibiotics as directed and COMPLETE the ENTIRE course regardless of the improvement of your symptoms. For pain control, you can use the following [id number] medicines (if >12 yo): - Regular strength (325mg/tab) Tylenol (acetaminophen) 2 tabs every 4-6 hours as needed. Do not exceed 12 tablets in a 24 hour period. Avoid taking more than 4 grams (4000 mg) of Tylenol per day. This includes any other sources of acetaminophen you may take on a regular basis. - Regular strength (200 mg/tab) Advil (ibuprofen) 1-2 tabs every 4-6 hours as needed. Do not exceed a dose of 3200 mg per day. Refrain from smoking cigarettes or using chewing tobacco until you have been evaluated by your dentist. Keeping beverages lukewarm and consuming soft foods can decrease your pain. Warm compresses over the affected area may offer some relief. You MUST seek evaluation of your dental pain by a dentist following your visit to the Emergency Department. The Emergency Department is not capable of treating dental issues long-term. You should call your dentist as soon as possible to make an appointment for evaluation of your dental pain. Return to the emergency department if you develop the following symptoms despite treatment course outlined above: fever, intractable pain, increased redness, swelling, or purulent discharge.
[2017-03-20 23:23] VITALS: BP 124/70; PULSE 72; O2SAT 98
== END 2017-03-20 23:24 | disposition home or self-care (01) ==
LOC: C.EDB 21:47 → C.EDC 23:24
DX: K04.7 Periapical abscess without sinus (principal); K08.89 Other specified disorders of teeth and supporting structures; F32.9 Major depressive disorder, single episode, unspecified; K21.9 Gastro-esophageal reflux disease without esophagitis; Z79.899 Other long term (current) drug therapy; Z86.19 Personal history of other infectious and parasitic diseases; Z87.19 Personal history of other diseases of the digestive system; Z87.440 Personal history of urinary (tract) infections; Z87.898 Personal history of other specified conditions; Z82.49 Family history of ischemic heart disease and other diseases of the circulatory system; Z83.3 Family history of diabetes mellitus; Z83.79 Family history of other diseases of the digestive system; Z84.1 Family history of disorders of kidney and ureter; F17.200 Nicotine dependence, unspecified, uncomplicated

== ENCOUNTER 2017-08-16 17:01 | Emergency (ER) | payer BC ==
[~2017-08-16] VITALS: Ht 154.9 cm; Wt 49.7 kg
[~2017-08-16 17:01] MED LIST changes: +PROM25TA16 PO; -PROM25TA9 PO
[2017-08-16 17:09] VITALS: TEMP 36.8; Ht 154.9 cm; Wt 49.7 kg
[2017-08-16] MEDS ORDERED: MoRPHine SULFATE 4 MG/ML 1 ML CARP\\VIAL IV PRN (17:30)
[2017-08-16] MEDS ORDERED: SODIUM CHLORIDE 0.9% 1000ML 1,000 ML IV ONE (17:30)
[2017-08-16] MEDS ORDERED: ONDANSETRON INJ 2 MG/ML 2 ML VIAL IV PRN (17:30)
--- NOTE | 2017-08-16 17:30 | EMERGENCY ROOM VISIT NOTE ---
History First contact with patient: 17:15 Chief Complaint: ABDOMINAL PAIN Stated Complaint: FEVER,NAUSEA,VOMITING,UPPER ABDOMEN/CHEST PAIN History of Present Illness The patient is a 26 year old female who presents to the Emergency Room with complaints of upper abdominal pain and vomiting that started yesterday. The pain preceded vomiting. The patient tried to eat dinner, which seemed to make the pain worse. She describes it as a sharp, stabbing sensation. She has tried Tylenol with no relief of the pain. She denies any problems with bowel movements. She had a normal bowel movement earlier this morning. She reports taking her temperature at home and it was 101F. No urinary symptoms. Review of Systems 10 system review performed and negative unless noted in HPI or below Past Medical/Surgical History Medical Problems: (1) Abdominal pain (2) Chronic constipation (3) Depression (4) Epigastric abdominal pain (5) Fall down stairs (6) GERD (gastroesophageal reflux disease) (7) H. pylori infection (8) Head pain (9) Herniated nucleus pulposis of lumbosacral region (10) Hx of migraines (11) Nausea & vomiting (12) Neck pain (13) Symptoms involving urinary system (14) Urinary tract infection Surgical Problems: (1) H/O colonoscopy (2) H/O esophagogastroduodenoscopy (3) Hx of umbilical hernia repair (4) Previous section (5) S/P appendectomy (6) S/P appendectomy (7) S/P section (8) S/P cholecystectomy (9) S/P laparoscopic cholecystectomy (10) S/P tonsillectomy Family History Cancer Diabetes mellitus Gallbladder disease Hypertension Kidney disease Kidney stones Social History Smoking Status: Current Every Day Smoker Alcohol Use: occasionally Drug Use: cocaine, marijuana Marital Status: Housing Status: lives with family Occupation Status: other Current/Historical Medications Scheduled Ondasetron Odt (Zofran Odt), 4 MG SL Q6H Physical Exam Vital Signs Date Time Temp Pulse Resp B/P (MAP) Pulse Ox O2 Delivery O2 Flow Rate FiO2 08/16/17 20:22 84 20 91/64 98 Room Air 08/16/17 19:05 69 16 89/50 100 Room Air 08/16/17 17:09 36.8 86 18 122/71 98 Room Air Physical Exam VITALS: Vitals are noted on the nurse's note and reviewed by myself. Vital signs stable. GENERAL: 26-year-old female in mild discomfort,, SKIN: The skin was without rashes, erythema, edema, or bruising. HEAD: Normocephalic atraumatic. MOUTH: Mucous membranes slightly dry NECK: No JVD. HEART: Regular rate and rhythm without murmurs gallops or rubs. LUNGS: Clear to auscultation bilaterally without wheezes, rales or rhonchi. No accessory muscle use. ABDOMEN: Positive bowel sounds x 4.Soft, tenderness to palpation in the epigastric region, without organomegaly. No guarding or rebound tenderness. MUSCULOSKELETAL: No muscle atrophy, erythema, or edema noted.Strength 5/5 throughout. NEURO: Patient was alert and oriented to person place and time. Normal sensation to touch. No focal neurological deficits. Medical Decision & Procedures Laboratory Results 08/16/17 17:37 Red Blood Count 4.22, Mean Corpuscular Volume 91.0, Mean Corpuscular Hemoglobin 31.5, Mean Corpuscular Hemoglobin Concent 34.6, Mean Platelet Volume 11.1, Neutrophils (%) (Auto) 33.7, Lymphocytes (%) (Auto) 51.7, Monocytes (%) (Auto) 11.8, Eosinophils (%) (Auto) 2.3, Basophils (%) (Auto) 0.3, Neutrophils # (Auto ) 2.20, Lymphocytes # (Auto) 3.37, Monocytes # (Auto) 0.77, Eosinophils # (Auto ) 0.15, Basophils # (Auto) 0.02 08/16/17 17:37 Test 08/16/17 17:22 08/16/17 17:37 Urine Color YELLOW Urine Appearance CLOUDY (CLEAR) Urine pH 6.0 (4.5-7.5) Urine Specific [place] 1.025 (1.000-1.030) Urine Protein NEG (NEG) Urine Glucose (UA) NEG (NEG) Urine Ketones NEG (NEG) Urine Occult Blood NEG (NEG) Urine Nitrite NEG (NEG) Urine Bilirubin NEG (NEG) Urine Urobilinogen NEG (NEG) Urine Leukocyte Esterase NEG (NEG) Urine WBC (Auto) 5-10 /hpf (0-5) Urine RBC (Auto) 5-10 /hpf (0-4) Urine Hyaline Casts (Auto) 0 /lpf (0-5) Urine Epithelial Cells (Auto) >30 /lpf (0-5) Urine Bacteria (Auto) 2+ (NEG) Urine Pathogenic Casts /lpf (0) Urine Mucus PRESENT (NONE PRSENT) Urine Test NEG (NEG) White Blood Count 6.52 K/uL (4.8-10.8) Red Blood Count 4.22 M/uL (4.2-5.4) Hemoglobin 13.3 g/dL (12.0-16.0) Hematocrit 38.4 % (37-47) Mean Corpuscular Volume 91.0 fL (80-100) Mean Corpuscular Hemoglobin 31.5 pg (25-34) Mean Corpuscular Hemoglobin Concent 34.6 g/dl (32-36) Platelet Count 184 K/uL (130-400) Mean Platelet Volume 11.1 fL (7.4-10.4) Neutrophils (%) (Auto) 33.7 % Lymphocytes (%) (Auto) 51.7 % Monocytes (%) (Auto) 11.8 % Eosinophils (%) (Auto) 2.3 % Basophils (%) (Auto) 0.3 % Neutrophils # (Auto) 2.20 K/uL (1.4-6.5) Lymphocytes # (Auto) 3.37 K/uL (1.2-3.4) Monocytes # (Auto) 0.77 K/uL (0.11-0.59) Eosinophils # (Auto) 0.15 K/uL (0-0.5) Basophils # (Auto) 0.02 K/uL (0-0.2) RDW Standard Deviation 40.8 fL (36.4-46.3) RDW Coefficient of Variation 12.2 % (11.5-14.5) Immature Granulocyte % (Auto) 0.2 % Immature Granulocyte # (Auto) 0.01 K/uL (0.00-0.02) Anion Gap 6.0 mmol/L (3-11) Est Creatinine Clear Calc Drug Dose 108.9 ml/min Estimated GFR () 145.4 Estimated GFR (Non- 125.4 BUN/Creatinine Ratio 25.5 (10-20) Calcium Level 8.4 mg/dl (8.5-10.1) Total Bilirubin 1.2 mg/dl (0.2-1) Aspartate Amino Transf (AST/SGOT) 16 U/L (15-37) Alanine Aminotransferase (ALT/SGPT) 30 U/L (12-78) Alkaline Phosphatase 54 U/L (45-117) Total Protein 6.9 gm/dl (6.4-8.2) Albumin 3.5 gm/dl (3.4-5.0) Globulin 3.4 gm/dl (2.5-4.0) Albumin/Globulin Ratio 1.0 (0.9-2) Lipase 231 U/L (73-393) Medications Administered Medications (Trade) Dose Ordered Sig/Lindsey Route Start Time Stop Time Status Last Admin Dose Admin Ondansetron HCl (Zofran Inj) 4 mg Q2H PRN IV 08/16/17 17:30 08/16/17 20:52 DC 08/16/17 17:50 4 MG Sodium Chloride 1,000 ml @ 999 mls/hr Q1H1M ONCE IV 08/16/17 17:30 08/16/17 18:30 DC 08/16/17 17:50 999 MLS/HR Morphine Sulfate (MoRPHine SULFATE INJ) 4 mg Q1H PRN IV 08/16/17 17:30 08/16/17 20:52 DC 08/16/17 17:50 4 MG Promethazine HCl (Phenergan Inj) 25 mg NOW STAT IM 08/16/17 19:19 08/16/17 19:20 DC 08/16/17 19:19 25 MG Ketorolac Tromethamine (Toradol Inj) 30 mg NOW STAT IV 08/16/17 19:19 08/16/17 19:20 DC 08/16/17 19:19 30 MG ED Course Patient was seen and examined Vital signs including blood pressure were reviewed medications list was verified with patient Labs were obtained, and a saline lock was established The patient was treated with morphine and Zofran. She was hydrated with 1 L of normal saline. Upon reevaluation, the patient was still complaining of pain and nausea. She was given Phenergan 25 mg IM. She was ordered Dilaudid, however the patient's blood pressure was low. This was changed to Toradol 30 mg IV. We discussed the results of her workup. She voiced understanding. I reviewed discharge instructions the patient. They voiced understanding and had no further questions. Medical Decision DIFFERENTIAL DIAGNOSIS: Gastroenteritis, Hepatitis, cholecystitis, cholangitis, biliary colic, pancreatitis, appendicitis, inguinal hernia, nephrolithiasis, inflammatory bowel disease, mesenteric adenitis, peptic ulcer disease, GERD, gastritis, pancreatitis,, bowel obstruction, splenic infarct, diverticulitis, mesenteric ischemia, metabolic, peritonitis, among others. This patient is a 26-year-old female presents emergency department with complaints of abdominal pain. On exam, she was tender in the epigastric region. My initial thought was possibly pancreatitis or gastritis. The patient is nontoxic in appearance. She is afebrile here. There is no leukocytosis. Her lipase is within normal limits. The patient's total bilirubin is slightly elevated at 1.2. All of the other LFTs are within normal limits. This is possibly secondary to vomiting. The etiology of the patient's pain is unclear. It is possible that she has a viral illness. Of note, the patient is listed to not receive prescriptions from the emergency department. This was due to frequent pain related visits and multiple providers providing prescriptions. The patient was given a prescription for Zofran. She was instructed to follow- up with her primary care physician within the next 24-48 hours for recheck. The patient does have a GI specialist. I also urged her to follow-up with her specialist as soon as possible. She will return to the emergency department with any new or worsening symptoms. This chart was completed in part utilizing [employer] Speech Voice Recognition software. Attempts were made to minimize the grammatical errors, random word insertions, pronoun errors and incomplete sentences. Any formal questions or concerns about the content, text or information contained within the body of this dictation should be directly addressed to the provider for clarification. Medication Reconcilliation Current Medication List: was personally reviewed by me Blood Pressure Screening Patient's blood pressure: Normal blood pressure Impression Primary Impression: Nausea & vomiting Additional Impression: Abdominal pain Departure Information Dispostion Home / Self-Care Condition GOOD Prescriptions Ondasetron Odt (ZOFRAN ODT) 4 Mg Tab 4 MG SL Q6H for Nausea, #20 TAB Prov: Adina Blake PA-C 08/16/17 Referrals No Doctor, Assigned (PCP) Patient Instructions My [facility] Additional Instructions You were evaluated in the emergency department for nausea, vomiting and abdominal pain. There were no significant abnormalities in your blood work. This could be due to a viral illness. Please take Zofran 1 tab every 6 hours as needed for nausea Tylenol 650 mg every 4 hours as needed for pain. Please do not exceed 3000 mg in a 24-hour period. Please follow-up with her primary care physician within the next 2 days for a recheck. Please also call your GI specialist in the morning for a follow-up appointment. Return to the emergency department if you have any of the following symptoms: -Fever of 103F or greater -Persistent vomiting - Persistent diarrhea -Lethargy -Chest pain -Shortness of breath -Worsening pain Problem Qualifiers
[2017-08-16 17:56] LABS: HEMATOCRIT 38.4 % (37-47); MEAN CORPUSCULAR HEMOGLOBIN 31.5 pg (25-34); MEAN CORPUSCULAR HGB CONC 34.6 g/dl (32-36); MEAN PLATELET VOLUME 11.1 fL (7.4-10.4); PLATELET COUNT 184 K/uL (130-400); RED BLOOD COUNT 4.22 M/uL (4.2-5.4); WHITE BLOOD COUNT 6.52 K/uL (4.8-10.8)
[2017-08-16 18:12] LABS: URINE APPEARANCE CLOUDY (CLEAR); URINE BILIRUBIN NEG (NEG); URINE COLOR YELLOW; URINE EPITHELIAL CELL AUTO >30 /lpf (0-5); URINE NITRITE NEG (NEG); URINE SPECIFIC GRAVITY 1.025 (1.000-1.030); UROBILINOGEN NEG (NEG)
[2017-08-16 18:16] LABS: BUN/CREATININE RATIO 25.5 (10-20); CALCIUM 8.4 mg/dl (8.5-10.1); CREATININE 0.58 mg/dl (0.60-1.20); POTASSIUM 4.1 mmol/L (3.5-5.1)
[2017-08-16 18:28] LABS: MANUAL MICROSCOPIC REQUIRED? NO; REVIEW REQ? YES
[2017-08-16 18:50] LABS: URINE MUCUS PRESENT (NONE PRSENT)
[2017-08-16 19:01] LABS: BASO % 0.3 %; BASO ABS # 0.02 K/uL (0-0.2); COMPLETE YES; EOS % 2.3 %; IG% 0.2 %; LYMPH % 51.7 %; LYMPH ABS # 3.37 K/uL (1.2-3.4); MONO % 11.8 %; NEUT % 33.7 %
[2017-08-16] MEDS ORDERED: HYDROmorphone INJ 1 MG/ML SYR IV ONE (19:15)
[2017-08-16] MEDS ORDERED: KETOROLAC TROMETHAMINE 30 MG/ML VIAL IV STA (19:19)
[2017-08-16] MEDS ORDERED: PROMETHAZINE HCL INJ 25 MG/ML 1 ML VIAL IM STA (19:19)
[2017-08-16] MEDS ORDERED: ONDA4TAB10 SL (20:05)
[2017-08-16 20:22] VITALS: BP 91/64; PULSE 84; O2SAT 98
== END 2017-08-16 20:24 | disposition home or self-care (01) ==
LOC: C.EDB 17:03
DX: R11.2 Nausea with vomiting, unspecified (principal); R10.10 Upper abdominal pain, unspecified; K59.09 Other constipation; F17.200 Nicotine dependence, unspecified, uncomplicated; F12.90 Cannabis use, unspecified, uncomplicated; F14.90 Cocaine use, unspecified, uncomplicated; Z90.89 Acquired absence of other organs; Z90.49 Acquired absence of other specified parts of digestive tract; Z83.3 Family history of diabetes mellitus; Z82.49 Family history of ischemic heart disease and other diseases of the circulatory system; Z84.1 Family history of disorders of kidney and ureter

== ENCOUNTER 2017-08-20 13:57 | Emergency (ER) | payer BC ==
[~2017-08-20] VITALS: Ht 154.9 cm; Wt 48.8 kg
[~2017-08-20 13:57] MED LIST changes: -ATV/1 PO; -OMEP40CA41 PO; +ONDA4TAB10 SL; -PROM25TA16 PO
[2017-08-20 14:10] VITALS: BP 116/75; PULSE 110; TEMP 36.9; O2SAT 98; Ht 154.9 cm; Wt 48.8 kg
[2017-08-20] MEDS ORDERED: ONDA4TAB10 SL (14:42)
[2017-08-20] MEDS ORDERED: IBUP-1050 PO (14:43)
[2017-08-20] MEDS ORDERED: ACET-1256 PO (14:44)
[2017-08-20 14:54] LABS: BASO % 0.4 %; BASO ABS # 0.02 K/uL (0-0.2); COMPLETE YES; EOS % 2.3 %; HEMATOCRIT 39.2 % (37-47); IG% 0.2 %; LYMPH % 49.4 %; LYMPH ABS # 2.35 K/uL (1.2-3.4); MEAN CELL VOLUME 90.3 fL (80-100); MEAN CORPUSCULAR HEMOGLOBIN 32.7 pg (25-34); MEAN CORPUSCULAR HGB CONC 36.2 g/dl (32-36); MEAN PLATELET VOLUME 10.3 fL (7.4-10.4); NEUT % 34.7 %; PLATELET COUNT 192 K/uL (130-400); RED BLOOD COUNT 4.34 M/uL (4.2-5.4); WHITE BLOOD COUNT 4.76 K/uL (4.8-10.8)
[2017-08-20 15:08] LABS: BUN/CREATININE RATIO 18.1 (10-20); CALCIUM 8.9 mg/dl (8.5-10.1); CREATININE 0.69 mg/dl (0.60-1.20); POTASSIUM 3.8 mmol/L (3.5-5.1)
[2017-08-20 15:11] LABS: ALB/GLOB RATIO 1.1 (0.9-2)
[2017-08-20] MEDS ORDERED: METOCLOPRAMIDE HCL INJ 5 MG/ML 2 ML VIAL IV STA (15:27)
[2017-08-20] MEDS ORDERED: DiphenhydrAMINE HCL 50 MG/ML VIAL IV STA (15:27)
--- NOTE | 2017-08-20 15:58 | DIAGNOSTIC IMAGING REPORT ---
ABDOMEN 2VIEW W/PA CHEST RTN CLINICAL HISTORY: epigastric abd pain pain COMPARISON STUDY: 10/03/2016 FINDINGS: The soft tissues, psoas shadows, renal outlines and intestinal gas pattern appear normal. There is no evidence for bowel obstruction. There is no evidence for free intraperitoneal air. No abnormal abdominal calcifications are seen. A frontal view of the chest was performed and is unremarkable. IMPRESSION: Normal study. The above report was generated using voice recognition software. It may contain grammatical, syntax or spelling errors. Electronically signed by: Francisco James M.D. 08/20/2017 3:57 PM Dictated Date/Time: 08/20/2017 3:57 PM
[2017-08-20 17:30] LABS: URINE APPEARANCE TURBID (CLEAR); URINE BILIRUBIN NEG (NEG); URINE COLOR YELLOW; URINE EPITHELIAL CELL AUTO >30 /lpf (0-5); URINE NITRITE NEG (NEG); URINE PH 8.5 (4.5-7.5); URINE SPECIFIC GRAVITY 1.024 (1.000-1.030); UROBILINOGEN NEG (NEG); ZZUR CULT IF INDIC CLEAN CATCH YES
[2017-08-20 17:32] LABS: MANUAL MICROSCOPIC REQUIRED? NO; REVIEW REQ? YES
[2017-08-20 17:51] LABS: BENZODIAZEPINE, URINE NEG (NEG); COCAINE,URINE NEG (NEG); PHENCYCLIDINE, URINE NEG (NEG)
--- NOTE | 2017-08-20 18:55 | EMERGENCY ROOM VISIT NOTE ---
History First contact with patient: 14:16 Chief Complaint: ABDOMINAL PAIN Stated Complaint: PAIN IN UPPER ABD,NAUSEA,VOMITING,FEVER Nursing Triage Summary: patient was here on the 25th fro abdominal pain and pain persists with nausea, vomiting and fevers. pt has history of abdominal pain and sees GI specialist. History of Present Illness The patient is a 26 year old female who presents to the Emergency Room with complaints of continued epigastric abdominal pain for the past several days. The patient was seen and evaluated at this facility 4 days ago where workup was performed and was essentially normal. The patient has not had improvement of her symptoms since that time. She called her primary care physician today to make an appointment for tomorrow, and was reportedly referred back to the ER for "imaging". The patient has had [address] scans over the past 4 years. She has been evaluated for chronic abdominal pain on multiple occasions. Her past medical history does include both marijuana and cocaine abuse. The patient reports a fever and nausea that worsens after eating. She rates her current discomfort a 7/10. She has been using Zofran at home for her nausea without significant relief. Review of Systems More than 10 systems were reviewed and otherwise negative with the exception of history of present illness. Past Medical/Surgical History Medical Problems: (1) Abdominal pain (2) Chronic constipation (3) Depression (4) Epigastric abdominal pain (5) Fall down stairs (6) GERD (gastroesophageal reflux disease) (7) H. pylori infection (8) Head pain (9) Herniated nucleus pulposis of lumbosacral region (10) Hx of migraines (11) Nausea & vomiting (12) Neck pain (13) Symptoms involving urinary system (14) Urinary tract infection Surgical Problems: (1) H/O colonoscopy (2) H/O esophagogastroduodenoscopy (3) Hx of umbilical hernia repair (4) Previous section (5) S/P appendectomy (6) S/P appendectomy (7) S/P section (8) S/P cholecystectomy (9) S/P laparoscopic cholecystectomy (10) S/P tonsillectomy Family History Cancer Diabetes mellitus Gallbladder disease Hypertension Kidney disease Kidney stones Social History Smoking Status: Current Every Day Smoker Alcohol Use: occasionally Drug Use: cocaine, marijuana Marital Status: Housing Status: lives with family Occupation Status: other Current/Historical Medications Scheduled PRN Acetaminophen (Tylenol), 500 MG PO BID PRN for Pain Ondasetron Odt (Zofran Odt), 4 MG SL Q6H PRN for Nausea or Vomiting Physical Exam Vital Signs Date Time Temp Pulse Resp B/P (MAP) Pulse Ox O2 Delivery O2 Flow Rate FiO2 08/20/17 14:10 36.9 110 18 116/75 98 Room Air Physical Exam VITALS: Vitals are noted on the nurse's note and reviewed by myself. Vital signs stable. GENERAL: Well-developed, well-nourished, white female, who is in no acute distress and resting comfortably. Patient is cooperative with the examination. NECK: Supple without nuchal rigidity. No lymphadenopathy. No thyromegaly. Cervical spine is nontender. HEART: Regular rate and rhythm without murmurs gallops or rubs. LUNGS: Clear to auscultation bilaterally without wheezes, rales or rhonchi. No retractions or accessory muscle use. ABDOMEN: Positive normal bowel sounds x 4. Soft with mild epigastric tenderness on palpation. No rebound or guarding. No distinct lower abdominal tenderness. No CVA tenderness. MUSCULOSKELETAL: No muscle atrophy, erythema, or edema noted. Full range of motion without joint tenderness in all extremities. Medical Decision & Procedures ER Provider Diagnostic Interpretation: ABDOMEN 2VIEW W/PA CHEST RTN CLINICAL HISTORY: epigastric abd pain pain COMPARISON STUDY: 10/03/2016 FINDINGS: The soft tissues, psoas shadows, renal outlines and intestinal gas pattern appear normal. There is no evidence for bowel obstruction. There is no evidence for free intraperitoneal air. No abnormal abdominal calcifications are seen. A frontal view of the chest was performed and is unremarkable. IMPRESSION: Normal study. Laboratory Results 08/20/17 14:36 Red Blood Count 4.34, Mean Corpuscular Volume 90.3, Mean Corpuscular Hemoglobin 32.7, Mean Corpuscular Hemoglobin Concent 36.2, Mean Platelet Volume 10.3, Neutrophils (%) (Auto) 34.7, Lymphocytes (%) (Auto) 49.4, Monocytes (%) (Auto) 13.0, Eosinophils (%) (Auto) 2.3, Basophils (%) (Auto) 0.4, Neutrophils # (Auto ) 1.65, Lymphocytes # (Auto) 2.35, Monocytes # (Auto) 0.62, Eosinophils # (Auto ) 0.11, Basophils # (Auto) 0.02 08/20/17 14:36 Test 08/20/17 14:36 08/20/17 16:56 White Blood Count 4.76 K/uL (4.8-10.8) Red Blood Count 4.34 M/uL (4.2-5.4) Hemoglobin 14.2 g/dL (12.0-16.0) Hematocrit 39.2 % (37-47) Mean Corpuscular Volume 90.3 fL (80-100) Mean Corpuscular Hemoglobin 32.7 pg (25-34) Mean Corpuscular Hemoglobin Concent 36.2 g/dl (32-36) Platelet Count 192 K/uL (130-400) Mean Platelet Volume 10.3 fL (7.4-10.4) Neutrophils (%) (Auto) 34.7 % Lymphocytes (%) (Auto) 49.4 % Monocytes (%) (Auto) 13.0 % Eosinophils (%) (Auto) 2.3 % Basophils (%) (Auto) 0.4 % Neutrophils # (Auto) 1.65 K/uL (1.4-6.5) Lymphocytes # (Auto) 2.35 K/uL (1.2-3.4) Monocytes # (Auto) 0.62 K/uL (0.11-0.59) Eosinophils # (Auto) 0.11 K/uL (0-0.5) Basophils # (Auto) 0.02 K/uL (0-0.2) RDW Standard Deviation 40.2 fL (36.4-46.3) RDW Coefficient of Variation 12.2 % (11.5-14.5) Immature Granulocyte % (Auto) 0.2 % Immature Granulocyte # (Auto) 0.01 K/uL (0.00-0.02) Anion Gap 7.0 mmol/L (3-11) Est Creatinine Clear Calc Drug Dose 91.5 ml/min Estimated GFR () 137.3 Estimated GFR (Non- 118.5 BUN/Creatinine Ratio 18.1 (10-20) Calcium Level 8.9 mg/dl (8.5-10.1) Total Bilirubin 1.3 mg/dl (0.2-1) Aspartate Amino Transf (AST/SGOT) 18 U/L (15-37) Alanine Aminotransferase (ALT/SGPT) 23 U/L (12-78) Alkaline Phosphatase 59 U/L (45-117) Total Protein 7.4 gm/dl (6.4-8.2) Albumin 3.8 gm/dl (3.4-5.0) Globulin 3.6 gm/dl (2.5-4.0) Albumin/Globulin Ratio 1.1 (0.9-2) Lipase 165 U/L (73-393) Urine Color YELLOW Urine Appearance TURBID (CLEAR) Urine pH 8.5 (4.5-7.5) Urine Specific [place] 1.024 (1.000-1.030) Urine Protein NEG (NEG) Urine Glucose (UA) NEG (NEG) Urine Ketones TRACE (NEG) Urine Occult Blood NEG (NEG) Urine Nitrite NEG (NEG) Urine Bilirubin NEG (NEG) Urine Urobilinogen NEG (NEG) Urine Leukocyte Esterase TRACE (NEG) Urine WBC (Auto) 5-10 /hpf (0-5) Urine RBC (Auto) 0-4 /hpf (0-4) Urine Hyaline Casts (Auto) 1-5 /lpf (0-5) Urine Epithelial Cells (Auto) >30 /lpf (0-5) Urine Bacteria (Auto) 2+ (NEG) Urine Test NEG (NEG) Urine Opiates Screen NEG (NEG) Urine Methadone, Qualitative NEG (NEG) Urine Barbiturates NEG (NEG) Urine Phencyclidine (PCP) Level NEG (NEG) Ur Amphetamine/Methamphetamine NEG (NEG) MDMA (Ecstasy) Screen NEG (NEG) Urine Benzodiazepines Screen NEG (NEG) Urine Cocaine Metabolite NEG (NEG) Urine Marijuana (THC) NEG (NEG) Medications Administered Medications (Trade) Dose Ordered Sig/Lindsey Route Start Time Stop Time Status Last Admin Dose Admin Diphenhydramine HCl (Benadryl Inj) 25 mg NOW STAT IV 08/20/17 15:27 08/20/17 15:29 DC 08/20/17 15:27 25 MG Metoclopramide HCl (Reglan Inj) 10 mg NOW STAT IV 08/20/17 15:27 08/20/17 15:29 DC 08/20/17 15:27 10 MG ED Course Physical exam and history were performed. Nursing notes, EMR, and Medication List were personally reviewed. Patient appears to have persistent epigastric abdominal pain for the past several days. The patient does not appear toxic on examination. She does have some mild epigastric tenderness. IV access was established and labs were obtained. I elected to perform plain films as the patient has had multiple CT images in the past several years. She was given Reglan and Benadryl for her nausea symptoms. The patient's blood work is as above and was reviewed. She does not have a significantly elevated white blood cell count, gross anemia, bandemia, or significant electrolyte imbalance. Lipase and transaminases are nondiagnostic. Urine is contaminated and culture is pending. She is not . X-ray does not show acute findings. I overall feel the patient is stable for discharge home. She does not have signs of peritonitis or exam consistent with an acute surgical abdomen. She has chronic epigastric pain and has followed with multiple specialists for this. I do recommend that she follow with her primary care physician tomorrow for further care and management. She should continue her at home medications. She was otherwise invited back to the ER with any new, worsening, or concerning symptoms. The chart was completed utilizing [employer] Speech Voice Recognition Software. Grammatical errors, random word insertions, pronoun errors, and incomplete sentences are an occasional consequence of this system due to software limitations, ambient noise, and hardware issues. Any formal questions or concerns about the content, text, or information contained within the body of this dictation should be directly addressed to the provider for clarification. . Medical Decision Differential diagnosis: Etiologies such as appendicitis, diverticulitis, PUD, biliary pathology, UTI, pancreatitis, obstruction, mesenteric ischemia, aortic pathology, infections, inflammatory bowel disease, renal colic, as well as others were entertained. Impression Primary Impression: Epigastric abdominal pain Departure Information Dispostion Home / Self-Care Condition FAIR Referrals Edwin Sauer M.D. (PCP) Forms HOME CARE DOCUMENTATION FORM, IMPORTANT VISIT INFORMATION Patient Instructions My [facility] Additional Instructions You were seen and evaluated today on an emergency basis only. This is not a substitute for, or an effort to provide, complete comprehensive medical care. It is not possible to recognize and treat all injuries or illnesses in a single emergency department visit. For this reason it is recommended that you followup with your primary care physician tomorrow for ongoing care and evaluation. You are welcome to return to the emergency department anytime with new, worsening, or concerning symptoms.
== END 2017-08-20 17:10 | disposition home or self-care (01) ==
LOC: C.EDB 13:58 → C.EDC 17:10
DX: R10.13 Epigastric pain (principal); F32.9 Major depressive disorder, single episode, unspecified; K21.9 Gastro-esophageal reflux disease without esophagitis; G43.909 Migraine, unspecified, not intractable, without status migrainosus; Z87.440 Personal history of urinary (tract) infections; Z80.9 Family history of malignant neoplasm, unspecified; Z83.3 Family history of diabetes mellitus; Z82.49 Family history of ischemic heart disease and other diseases of the circulatory system; Z84.1 Family history of disorders of kidney and ureter; F17.210 Nicotine dependence, cigarettes, uncomplicated

== ENCOUNTER 2017-10-18 20:24 | Emergency (ER) | payer OTHER, BC ==
[~2017-10-18] VITALS: Ht 157.5 cm; Wt 54.5 kg
[~2017-10-18 20:24] MED LIST changes: +ACET-1256 PO
[2017-10-18 20:31] VITALS: BP 105/73; PULSE 102; TEMP 36.5; O2SAT 100; Ht 157.5 cm; Wt 54.5 kg
--- NOTE | 2017-10-18 20:46 | EMERGENCY ROOM VISIT NOTE ---
ED Visit Note First contact with patient: 20:44 CHIEF COMPLAINT: Leg injury HISTORY OF PRESENT ILLNESS: This is a 27 year-old female who presents after left thigh injury. Patient states she works at [employer], states that a resident pinned her leg between a mail cart and her wheelchair, and "kept ramming into my leg." This occurred at approximately 7pm this evening. She reports the pain as constant, burning and aching, radiates from her hip to her knee, worse with walking and movement of the leg, better with rest, 8/10. She did not try any medications for the pain prior to coming here. She has been able to walk on the leg, but weight bearing is painful. She reports a history of femur fracture from a crush injury when she was a small child, denies any chronic pain or issues from that injury. She denies any other associated injuries today. She denies any chest pain, shortness of breath , dizziness or syncope, back pain, abdominal pain, nausea or vomiting, diarrhea , hematuria or dysuria, or rash. REVIEW OF SYSTEMS: A complete 10 point review of systems was reviewed with the patient with pertinent positives and negatives as per history of present illness. All else were negative. PMH: Previous leg injury as a child, no other significant past medical history. SOCIAL HISTORY: Patient lives at home. She is a current every day smoker. PHYSICAL EXAM: Vital Signs: Reviewed Nurse's notes. CONSTITUTIONAL: Pleasant and cooperative. No acute distress, but appears in pain throughout the exam. HEENT: Normocephalic, atraumatic. Pupils equal, round and reactive to light, EOMI. TMs normal. Pharynx normal. NECK: Supple, full active range of motion without discomfort. RESPIRATORY: Clear to auscultation bilaterally with no wheezing, crackles, rhonchi or stridor. Equal expansion bilaterally. CARDIOVASCULAR: Regular rate and rhythm with no murmurs, rubs or gallops. Normal peripheral perfusion. No edema. GASTROINTESTINAL: Soft, nontender, nondistended. No palpable masses or HSM. Bowel sounds present in all quadrants. MUSCULOSKELETAL: There is tenderness to palpation of the left lateral thigh, no significant swelling, ecchymosis, or abrasions noted. Full range of motion of the left hip joint and left knee joints without comfort. INTEGUMENTARY: No rash or other significant dermatologic conditions noted. NEUROLOGIC: Alert and oriented X 4 with normal affect. Cranial nerves II-XII grossly intact. No focal neurologic deficits noted. Normal strength and sensation bilateral lower extremities. IMAGING: LEFT FEMUR 3 VIEWS CLINICAL HISTORY: Left thigh injury. FINDINGS: AP, frog-leg, and lateral views of the left femur are obtained. No prior studies are available for comparison at the time of dictation. The skeletal structures are well mineralized. No acute fracture is clearly identified. The visualized left hemipelvis appears intact. Deformity of the left proximal femoral shaft appears chronic. The hip and knee joints appear maintained. The overlying soft tissues are within normal limits. IMPRESSION: 1. No acute left femoral fracture is identified. 2. Contour deformity of the proximal left femoral shaft is likely related to remote trauma. Correlation with the patient's medical history will be required. EMERGENCY DEPARTMENT COURSE: I examined the patient. Differential diagnosis includes contusion, abrasion, hematoma, fracture, among others. X-ray of the left femur does not show any acute fractures. Patient was given ice pack and Motrin for pain, with much improvement.. She was provided with crutches for comfort. He is instructed to follow up with her PCP if her leg pain does not improve in the next few days, was given strict return precautions should her symptoms worsen, she verbalized understanding. Patient was discharged home in stable condition. Problem List Medical Problems: (1) Abdominal pain Status: Chronic (2) Chronic constipation Status: Chronic (3) Depression Status: Chronic (4) Epigastric abdominal pain Status: Resolved (5) Fall down stairs Status: Resolved (6) GERD (gastroesophageal reflux disease) Status: Chronic (7) H. pylori infection Permanent Comment: recurrent Status: Chronic (8) Head pain Status: Resolved (9) Herniated nucleus pulposis of lumbosacral region Permanent Comment: noncompressive L5-S1 disc protrusion on MRI 02/13 Status: Chronic (10) Hx of migraines Status: Chronic (11) Nausea & vomiting Status: Resolved (12) Neck pain Status: Resolved (13) Symptoms involving urinary system Status: Resolved (14) Urinary tract infection Status: Resolved Surgical Problems: (1) H/O colonoscopy Permanent Comment: 12/23/2014- 2 polyps, biopsies negative, otherwise normal Status: Chronic (2) H/O esophagogastroduodenoscopy Permanent Comment: 09/09/15: EGD showed gastritis with biopsies positive for H pylori. Specimens obtained for H pylori culture and sensitivity, however, were lost by the lab. Status: Chronic (3) Hx of umbilical hernia repair Status: Chronic (4) Previous section Status: Resolved (5) S/P appendectomy Status: Resolved (6) S/P appendectomy Status: Chronic (7) S/P section Permanent Comment: 08/21/13 Status: Chronic (8) S/P cholecystectomy Status: Resolved (9) S/P laparoscopic cholecystectomy Status: Chronic (10) S/P tonsillectomy Status: Chronic Current/Historical Medications Scheduled PRN Acetaminophen (Tylenol), 500 MG PO BID PRN for Pain Allergies Coded Allergies: Prochlorperazine (Verified Allergy, Intermediate, Panic Attack, 08/20/17) Acetaminophen (Unverified Allergy, Unknown, unknown, 08/20/17) Polyethylene Glycol (Unverified Allergy, Unknown, UNKNOWN, 08/20/17) Sodium Sulfate (Unverified Allergy, Unknown, UNKNOWN, 08/20/17) Hydrocodone (Verified Adverse Reaction, Unknown, gi upset/emesis, 08/20/17 ) pt Uncoded Allergies: BOWEL PREP (Allergy, Unknown, HIVES, 01/10/15) Vital Signs Date Time Temp Pulse Resp B/P (MAP) Pulse Ox O2 Delivery O2 Flow Rate FiO2 10/18/17 20:31 36.5 102 18 105/73 100 Room Air Medications Administered Medications (Trade) Dose Ordered Sig/Lindsey Route Start Time Stop Time Status Last Admin Dose Admin Ibuprofen (Motrin Tab) 600 mg NOW STAT PO 10/18/17 20:51 10/18/17 20:53 DC 10/18/17 21:04 600 MG Departure Information Impression Primary Impression: Contusion of left thigh, initial encounter Dispostion Home / Self-Care Condition GOOD Referrals No Doctor, Assigned (PCP) Patient Instructions ED Contusion Lower Ext, My [facility] Additional Instructions Ibuprofen 600mg every 6-8 hours if needed for pain. Ice and elevation to the leg for the next two days. Use the crutches to stay off the left leg as much as possible for the next 2-3 days. Follow up with your physician in 4-5 days if your pain is not improving. Please return to the ER for worsening symptoms, including increased swelling, redness, hot to touch, fevers/chills, complete numbness or weakness of the leg. Work Instructions Return To Work: 1 day
[2017-10-18] MEDS ORDERED: IBUPROFEN 600 MG TAB PO STA (20:51)
--- NOTE | 2017-10-18 21:33 | DIAGNOSTIC IMAGING REPORT ---
LEFT FEMUR 3 VIEWS CLINICAL HISTORY: Left thigh injury. FINDINGS: AP, frog-leg, and lateral views of the left femur are obtained. No prior studies are available for comparison at the time of dictation. The skeletal structures are well mineralized. No acute fracture is clearly identified. The visualized left hemipelvis appears intact. Deformity of the left proximal femoral shaft appears chronic. The hip and knee joints appear maintained. The overlying soft tissues are within normal limits. IMPRESSION: 1. No acute left femoral fracture is identified. 2. Contour deformity of the proximal left femoral shaft is likely related to remote trauma. Correlation with the patient's medical history will be required. Electronically signed by: Scottie Rabago M.D. 10/18/2017 9:32 PM Dictated Date/Time: 10/18/2017 9:30 PM
[2017-12-29] MEDS ORDERED: CLC150 PO (13:17)
[2017-12-29] MEDS ORDERED: LCTX PO (13:17)
== END 2017-10-18 22:40 | disposition home or self-care (01) ==
LOC: C.EDB 20:25 → C.EDD 22:40
DX: S70.12XA Contusion of left thigh, initial encounter (principal); W22.8XXA Striking against or struck by other objects, initial encounter; K21.9 Gastro-esophageal reflux disease without esophagitis; F32.9 Major depressive disorder, single episode, unspecified; Z87.440 Personal history of urinary (tract) infections; Z86.19 Personal history of other infectious and parasitic diseases; Z90.49 Acquired absence of other specified parts of digestive tract; Z98.890 Other specified postprocedural states; Z88.5 Allergy status to narcotic agent; Z88.6 Allergy status to analgesic agent; Z88.8 Allergy status to other drugs, medicaments and biological substances

== ENCOUNTER → 2017-11-01 | Outpatient (CLI) | payer BC, OTHER ==
[~2017-11-01] MED LIST changes: +DICL75TA2 PO; +IBUP-1050 PO; -ONDA4TAB10 SL
== END | disposition home or self-care (01) ==
LOC: C.RDSM 13:11
PROVIDERS: ATTEND Family Medicine Sports Medicine
DX: M79.652 Pain in left thigh (principal)

== ENCOUNTER 2017-11-05 09:06 | Emergency (ER) | payer OTHER ==
[~2017-11-05] VITALS: Ht 165.1 cm; Wt 48.7 kg
[~2017-11-05 09:06] MED LIST changes: -DICL75TA2 PO; -IBUP-1050 PO
[2017-11-05 09:15] VITALS: TEMP 36.6; Ht 165.1 cm; Wt 48.7 kg
[2017-11-05] MEDS ORDERED: IBUP-1050 PO (09:50)
[2017-11-05] MEDS ORDERED: DICL75TA2 PO (10:11)
[2017-11-05 11:11] VITALS: BP 94/59; PULSE 70; O2SAT 98
--- NOTE | 2017-11-05 18:25 | EMERGENCY ROOM VISIT NOTE ---
History First contact with patient: 09:47 Chief Complaint: GROIN PAIN Stated Complaint: SEVERE GROIN PAIN,STILL CAN'T USE LEG,SWELLING WC History of Present Illness The patient is a 27 year old white female who presents to the Emergency Room with complaints of left anterior thigh pain that has been present for several days. Patient states she was injured at work at [employer] when a resident ran their wheelchair into her repetitively and pinned her against a wall. She was seen by her PCP and her orthopedist. X-rays have been obtained that were unremarkable. She continues to walk with crutches. She states she cannot put any weight on the left leg. She had one session of PT earlier this week. She is scheduled for more next week. She was at work today and states she could not tolerate it. She is on light duty and is mostly sedentary. She states the pain was too severe and she left work. She has been using ibuprofen without improvement. She cannot take Tylenol. No additional treatment. No new injury. Review of Systems REVIEW OF SYSTEM: HEENT: No dizziness, visual problems, hearing loss, or tinnitus. There is no difficulty swallowing and no oral lesions are present. PULMONARY: No cough, shortness of breath, sputum production or hemoptysis. CARDIOVASCULAR: No chest pain, palpitations, shortness of breath or peripheral edema. GASTROINTESTINAL: No diarrhea, nausea, vomiting, or abdominal pain. GENITOURINARY: No dysuria, frequency, urgency or nocturia. NEUROLOGIC: No weakness, muscle tenderness, epilepsy or history of neurological problems. MUSCULOSKELETAL: No history of joint tenderness/swelling. No history of arthritis or arthralgias. SKIN: No rashes or lesions. PSYCHIATRIC: Positive history of depression. ENDOCRINE: No history of diabetes, thyroid disorders, or abnormal hair growth. Past Medical/Surgical History Medical Problems: (1) Abdominal pain (2) Chronic constipation (3) Depression (4) Epigastric abdominal pain (5) Fall down stairs (6) GERD (gastroesophageal reflux disease) (7) H. pylori infection (8) Head pain (9) Herniated nucleus pulposis of lumbosacral region (10) Hx of migraines (11) Nausea & vomiting (12) Neck pain (13) Symptoms involving urinary system (14) Urinary tract infection Surgical Problems: (1) H/O colonoscopy (2) H/O esophagogastroduodenoscopy (3) Hx of umbilical hernia repair (4) Previous section (5) S/P appendectomy (6) S/P appendectomy (7) S/P section (8) S/P cholecystectomy (9) S/P laparoscopic cholecystectomy (10) S/P tonsillectomy Family History Cancer Diabetes mellitus Gallbladder disease Hypertension Kidney disease Kidney stones Social History Smoking Status: Current Every Day Smoker Alcohol Use: occasionally Drug Use: cocaine, marijuana Marital Status: Housing Status: lives with family Occupation Status: other Current/Historical Medications Scheduled Diclofenac Sodium (Voltaren), 1 TAB PO BID Scheduled PRN Ibuprofen (Advil), 200-600 MG PO Q4H PRN for Pain Physical Exam Vital Signs Date Time Temp Pulse Resp B/P (MAP) Pulse Ox O2 Delivery O2 Flow Rate FiO2 11/05/17 11:11 70 15 94/59 98 11/05/17 11:09 82 15 94/59 98 Room Air 11/05/17 09:15 36.6 101 18 98/55 99 Room Air Physical Exam Gen.: Well-developed, well-nourished, young white female, who looks older than her stated age. Laying on a bed. Alert and oriented. Skin:Warm and dry with good turgor. No rashes or lesions. Resolving ecchymosis present over her left lateral thigh. No edema. No Erythema. The patient is not diaphoretic. No abrasions. Musculoskeletal: Patient has focal discomfort with palpation over the proximal hip flexor tendon. She also has pain with palpation over her abductor tendon. Mild discomfort with palpation over the quadriceps musculature and abductor musculature. Pain increases with resisted hip flexion as well as hip adduction. No pain with palpation over the greater trochanter, IT band, gluteus , iliac crest, or ASIS. She is able to set her quad and do a straight leg raise , though this increases her pain. She complains of pain at the tendons with log rolling. There is no pain deep within the joint. Neurologic: Gross sensation is intact across the left leg by soft touch. Medical Decision & Procedures ED Course Patient was educated regarding today's findings. Conservative care measures were discussed. She was prescribed Voltaren 75 mg twice a day with food. Stop the ibuprofen. Ice to the areas intermittently to improve comfort. She may switch to moist heat if this feels better. Gentle stretching daily. Continue with her physical therapy. Follow-up with her orthopedist for reevaluation. She may need to be switched to a different level of work restriction. Continue with her crutches. Weight-bear as tolerated. I did review her old films she was reassured that I find no evidence of fracture or dislocation. Return to the ED for any other concerns. Medical Decision Possibility of hip dislocation, stress fracture, muscle tear, tendon rupture, tendinitis, and labral injury were considered. Medication Reconcilliation Current Medication List: was personally reviewed by me Blood Pressure Screening Patient's blood pressure: Normal blood pressure Impression Primary Impression: Strain of flexor muscle of left hip Departure Information Dispostion Home / Self-Care Condition GOOD Prescriptions Diclofenac Sodium (VOLTAREN) 75 Mg Tab 1 TAB PO BID, #30 TAB Prov: Keron Foster,P.A. 11/05/17 Referrals Keaton Guzman M.D. Forms WORK / SCHOOL INSTRUCTIONS, HOME CARE DOCUMENTATION FORM, IMPORTANT VISIT INFORMATION Patient Instructions My [facility] [email or web address] Additional Instructions Gentle stretching daily Apply ice intermittently as needed for discomfort Use warm moist compresses in the morning to improve stiffness Continue with PT as scheduled Follow-up with your orthopedist this week to discuss work status Continue using your crutches as needed Problem Qualifiers Primary Impression: Strain of flexor muscle of left hip Encounter type: initial encounter Qualified Codes: S76.012A - Strain of muscle, fascia and tendon of left hip, initial encounter
== END 2017-11-05 11:11 | disposition home or self-care (01) ==
LOC: C.EDB 09:07 → C.EDC 11:11
DX: S76.012A Strain of muscle, fascia and tendon of left hip, initial encounter (principal); W22.8XXA Striking against or struck by other objects, initial encounter; F17.200 Nicotine dependence, unspecified, uncomplicated; Z91.81 History of falling; Z87.440 Personal history of urinary (tract) infections; Z86.19 Personal history of other infectious and parasitic diseases; Z98.891 History of uterine scar from previous surgery; Z90.49 Acquired absence of other specified parts of digestive tract; Z90.89 Acquired absence of other organs; Z98.890 Other specified postprocedural states; Z83.3 Family history of diabetes mellitus; Z82.49 Family history of ischemic heart disease and other diseases of the circulatory system; Z84.1 Family history of disorders of kidney and ureter

== ENCOUNTER 2017-12-27 19:04 | Inpatient (IN) | payer BC, OTHER ==
[~2017-12-27] VITALS: Ht 160 cm; Wt 48.8 kg
[~2017-12-27 19:04] MED LIST changes: -ACET-1256 PO; +DICL75TA2 PO; +IBUP-1050 PO
[2017-12-27] MEDS ORDERED: SODIUM CHLORIDE 0.9% 1000ML 1,000 ML IV STA (19:21)
[2017-12-27] MEDS ORDERED: MoRPHine SULFATE 4 MG/ML 1 ML CARP\\VIAL IV STA ×2 (19:28→21:50)
[2017-12-27] MEDS ORDERED: OPTIRAY 320 IV PRN (19:30)
[2017-12-27 20:11] LABS: ISTAT CREATININE 0.5 mg/dl (0.6-1.3); ISTAT IONIZED CALCIUM 1.09 mmol/l (1.12-1.32); ISTAT POTASSIUM 3.9 mEq/L (3.3-5.0)
[2017-12-27 20:17] LABS: BASO % 0.1 %; BASO ABS # 0.02 K/uL (0-0.2); EOS % 0.1 %; EOS ABS # 0.02 K/uL (0-0.5); HEMATOCRIT 41.2 % (37-47); HEMOGLOBIN 14.8 g/dL (12.0-16.0); IG# 0.03 K/uL (0.00-0.02); LYMPH % 16.1 %; MEAN CELL VOLUME 90.5 fL (80-100); MEAN CORPUSCULAR HEMOGLOBIN 32.5 pg (25-34); MEAN CORPUSCULAR HGB CONC 35.9 g/dl (32-36); MEAN PLATELET VOLUME 10.7 fL (7.4-10.4); MONO % 13.1 %; MONO ABS # 1.79 K/uL (0.11-0.59); NEUT % 70.4 %; NEUT ABS # 9.59 K/uL (1.4-6.5); PLATELET COUNT 187 K/uL (130-400); RED CELL DISTRIBUTION WIDTH CV 11.9 % (11.5-14.5); RED CELL DISTRIBUTION WIDTH SD 39.8 fL (36.4-46.3); WHITE BLOOD COUNT 13.65 K/uL (4.8-10.8)
[2017-12-27] MEDS ORDERED: ONDANSETRON INJ 2 MG/ML 2 ML VIAL ONE (20:19)
[2017-12-27] MEDS ORDERED: ONDANSETRON INJ 2 MG/ML 2 ML VIAL IV STA (20:20)
[2017-12-27 20:36] LABS: ALBUMIN 3.7 gm/dl (3.4-5.0); CALCIUM 9.4 mg/dl (8.5-10.1); CREATININE 0.67 mg/dl (0.60-1.20); POTASSIUM 3.4 mmol/L (3.5-5.1)
[2017-12-27 20:39] LABS: TOTAL PROTEIN 7.9 gm/dl (6.4-8.2)
[2017-12-27] MEDS ORDERED: DICL-201 PO (20:51)
[2017-12-27] MEDS ORDERED: AMOX500T PO (20:51)
[2017-12-27] MEDS ORDERED: DOXYCYCLINE IV 100 MG in DEXTROSE 5% 100ML 100 ML IV STA (20:54)
--- NOTE | 2017-12-27 21:00 | DIAGNOSTIC IMAGING REPORT ---
CT SCAN OF THE NECK WITH IV CONTRAST CLINICAL HISTORY: Left facial swelling. COMPARISON STUDY: CT scan of the cervical spine dated 05/03/2016. TECHNIQUE: Following the IV administration of 112 cc of Optiray 320, CT scan of the soft tissues of the neck was performed from the skull base to the upper chest. Images are reviewed in the axial, sagittal, and coronal planes. IV contrast was administered without complication. A dose lowering technique was utilized adhering to the principles of ALARA. CT DOSE: 220.13 mGy.cm FINDINGS: Pharynx: The nasopharynx, oropharynx, and laryngeal pharynx are normal in appearance. The pharyngeal airway is widely patent. There is no evidence of mass lesion. The vocal cords are symmetric. The parapharyngeal fat is well maintained. The prevertebral/retropharyngeal soft tissues are within normal limits. Dentition: Several teeth are absent. Numerous dental caries are identified. There is a large periapical lucency identified around 2 left maxillary molars. There is significant inflammatory stranding in the overlying soft tissues. A tiny fluid collection is suggested superficial to the periapical lucency is seen on image #148 measuring 6 mm. This likely represents a small abscess. Inflammatory change in the left premalar soft tissues is consistent with cellulitis. Lymphadenopathy: No cervical lymphadenopathy is seen Thyroid: Normal in size and attenuation. Salivary glands: The parotid and submandibular glands are within normal limits. Brain parenchyma: The visualized brain parenchyma at the skull base is normal in appearance. Vascular structures: The carotid arteries and jugular veins are widely patent bilaterally. Skeletal structures: Imaged portions of the calvarium at the skull base are within normal limits. The cervical spine appears intact. Sinuses and mastoids: There is moderate mucosal thickening in the left maxillary antrum. Mild mucosal thickening is seen in the left ethmoid sinuses. The remaining paranasal sinuses are clear. There is a small left mastoid effusion. The right mastoid air cells are well pneumatized. Orbits: The bony orbits are intact. Orbital contents are normal in appearance. Lung apices: Visualized apical lung parenchyma is clear. IMPRESSION: 1. There is a large periapical lucency identified around 2 left maxillary molars. There is significant overlying inflammatory change as well as a 6 mm periodontal abscess. Follow-up with dentistry is recommended. 2. There is cellulitis of the overlying left facial soft tissues. 3. Numerous additional dental caries are identified. 4. Left maxillary sinus disease as above. Electronically signed by: Scottie Rabago M.D. 12/27/2017 8:59 PM Dictated Date/Time: 12/27/2017 8:51 PM
[2017-12-27] MEDS ORDERED: CLINDAMYCIN 600 MG/54 ML D5W IV STA (21:24)
[2017-12-27] MEDS ORDERED: ONDA4TAB65 PO (22:28)
--- NOTE | 2017-12-27 22:39 | History and Physical ---
History & Physical Date & Time of Service: Dec 27, 2017 at 22:28 Chief Complaint: Infection In Mouth, Swelling, Pain, Sweats Primary Care Physician: Edwin Sauer M.D. History of Present Illness Source: patient, family, clinic records, hospital records The patient is a 27-year-old female who presents to the ER with facial swelling and left-sided tooth pain. She reports her mouth started to hurt her 3 days ago. She took some Advil with some relief but the pain increased the next day. She began to have fevers and chills as well as diffuse body sweats 2 days ago. She went to see a dentist at [facility] who gave her 10 days of Augmentin after an x-ray revealed signs of infection. She states that the dentist told her he could not pull the tooth because he needed an oral surgeon who is currently out of town. The patient is having difficulties tolerating food because of the pressure it puts on her infection infected tooth. She is able to tolerate liquids and soft foods at this time. She has a history of multiple tooth extractions treated at [facility] oral maxillofacial surgeons by Dr. Santiago in the past. She denies having partials or dentures at this time. Review of systems is otherwise negative for abdominal pain, diarrhea or recent trauma to her tooth. She has no pain in her neck and denies any issues with swallowing. There is no lymphadenopathy in her neck on exam. There is no erythema of the face but left mandibular swelling is present and significant. Facial CT done in the ER reveals a 6 mm periapical abscess. Physical exam reveals presence of pus draining from upper left tooth area. Past Medical/Surgical History Medical Problems: (1) Abdominal pain Status: Chronic (2) Biliary dyskinesia Status: Chronic (3) Chronic constipation Status: Chronic (4) Depression Status: Chronic (5) Depression Status: Chronic (6) Epigastric abdominal pain Status: Resolved (7) Fall down stairs Status: Resolved (8) GERD (gastroesophageal reflux disease) Status: Chronic (9) H. pylori infection Permanent Comment: recurrent Status: Chronic (10) Head pain Status: Resolved (11) Herniated nucleus pulposis of lumbosacral region Permanent Comment: noncompressive L5-S1 disc protrusion on MRI 02/13 Status: Chronic (12) Herniated nucleus pulposus of lumbosacral region Status: Chronic (13) Hx of migraines Status: Chronic (14) Migraine with aura Status: Chronic (15) Nausea & vomiting Status: Resolved (16) Neck pain Status: Resolved (17) Symptoms involving urinary system Status: Resolved (18) Tobacco abuse Status: Chronic (19) Urinary tract infection Status: Resolved Surgical Problems: (1) H/O colonoscopy Permanent Comment: 12/23/2014- 2 polyps, biopsies negative, otherwise normal Status: Chronic (2) H/O esophagogastroduodenoscopy Permanent Comment: 09/09/15: EGD showed gastritis with biopsies positive for H pylori. Specimens obtained for H pylori culture and sensitivity, however, were lost by the lab. Status: Chronic (3) Hx of umbilical hernia repair Status: Chronic (4) Previous section Status: Resolved (5) S/P appendectomy Status: Resolved (6) S/P appendectomy Status: Chronic (7) S/P appy Status: Chronic (8) S/P Status: Chronic (9) S/P section Permanent Comment: 08/21/13 Status: Chronic (10) S/P maggie Status: Chronic (11) S/P cholecystectomy Status: Resolved (12) S/P laparoscopic cholecystectomy Status: Chronic (13) S/P T&A (status post tonsillectomy and adenoidectomy) Status: Chronic (14) S/P tonsillectomy Status: Chronic (15) S/P tooth extraction Permanent Comment: multiple teeth extracted in the past Status: Chronic Family History Cancer Diabetes mellitus Gallbladder disease Hypertension Kidney disease Kidney stones Social History Smoking Status: Current Every Day Smoker Smokeless Tobacco Use: No Alcohol Use: none Drug Use: cocaine, marijuana Marital Status: Housing status: lives with family (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 [email or web address]), lives with significant other Occupational Status: other Immunizations History of Influenza Vaccine: Yes Influenza Vaccine Date: Aug 23, 2013 History of Tetanus Vaccine?: Yes Tetanus Immunization Date: Jun 19, 2013 History of Pneumococcal: No History of Hepatitis B Vaccine: No Allergies Coded Allergies: Prochlorperazine (Verified Allergy, Intermediate, Panic Attack, 12/27/17) Acetaminophen (Verified Allergy, Unknown, unknown, 12/27/17) Polyethylene Glycol (Verified Allergy, Unknown, UNKNOWN, 12/27/17) Sodium Sulfate (Verified Allergy, Unknown, UNKNOWN, 12/27/17) Hydrocodone (Verified Adverse Reaction, Unknown, gi upset/emesis, 12/27/17) pt Uncoded Allergies: BOWEL PREP (Allergy, Unknown, HIVES, 01/10/15) Home Medications Scheduled Amoxicillin & Pot Clavulanate (Augmentin 500MG), 1 TAB PO TID Diclofenac (Voltaren), 75 MG PO BID Scheduled PRN Ibuprofen (Advil), 200-600 MG PO Q4H PRN for Pain Ondansetron Hcl (Zofran), 4 MG PO Q6H PRN for nausea Review of Systems At least 10 systems reviewed and negative except as indicated in HPI. Physical Exam Vital Signs Date Time Temp Pulse Resp B/P (MAP) Pulse Ox O2 Delivery O2 Flow Rate FiO2 12/27/17 21:15 116 18 102/76 99 Room Air 12/27/17 20:00 Room Air 12/27/17 19:49 148 12/27/17 19:06 37.3 147 20 116/83 99 Room Air General Appearance: WD/WN, no apparent distress Head: normocephalic, atraumatic Eyes: normal inspection, PERRL, sclerae normal ENT: pharynx normal, + pertinent finding (pus draining from upper left tooth area, facial swelling without superficial erythema present on L side of face/ mandible not involving neck. 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: part maker II-XII nml as tested, no motor/sensory deficits, alert, normal mood/affect, oriented x 3 Skin: normal color, warm/dry, no rash Diagnostics Laboratory Results 12/27/17 19:48 Red Blood Count 4.55, Mean Corpuscular Volume 90.5, Mean Corpuscular Hemoglobin 32.5, Mean Corpuscular Hemoglobin Concent 35.9, Mean Platelet Volume 10.7, Neutrophils (%) (Auto) 70.4, Lymphocytes (%) (Auto) 16.1, Monocytes (%) (Auto) 13.1, Eosinophils (%) (Auto) 0.1, Basophils (%) (Auto) 0.1, Neutrophils # (Auto ) 9.59, Lymphocytes # (Auto) 2.20, Monocytes # (Auto) 1.79, Eosinophils # (Auto ) 0.02, Basophils # (Auto) 0.02 12/27/17 19:48 Test 12/27/17 19:45 12/27/17 19:48 12/27/17 20:00 12/27/17 20:15 Lactic Acid Level 2.0 mmol/L (0.4-2.0) White Blood Count 13.65 K/uL (4.8-10.8) Red Blood Count 4.55 M/uL (4.2-5.4) Hemoglobin 14.8 g/dL (12.0-16.0) Hematocrit 41.2 % (37-47) Mean Corpuscular Volume 90.5 fL (80-100) Mean Corpuscular Hemoglobin 32.5 pg (25-34) Mean Corpuscular Hemoglobin Concent 35.9 g/dl (32-36) Platelet Count 187 K/uL (130-400) Mean Platelet Volume 10.7 fL (7.4-10.4) Neutrophils (%) (Auto) 70.4 % Lymphocytes (%) (Auto) 16.1 % Monocytes (%) (Auto) 13.1 % Eosinophils (%) (Auto) 0.1 % Basophils (%) (Auto) 0.1 % Neutrophils # (Auto) 9.59 K/uL (1.4-6.5) Lymphocytes # (Auto) 2.20 K/uL (1.2-3.4) Monocytes # (Auto) 1.79 K/uL (0.11-0.59) Eosinophils # (Auto) 0.02 K/uL (0-0.5) Basophils # (Auto) 0.02 K/uL (0-0.2) RDW Standard Deviation 39.8 fL (36.4-46.3) RDW Coefficient of Variation 11.9 % (11.5-14.5) Immature Granulocyte % (Auto) 0.2 % Immature Granulocyte # (Auto) 0.03 K/uL (0.00-0.02) Est Creatinine Clear Calc Drug Dose 95.4 ml/min Estimated GFR () 137.7 Estimated GFR (Non- 118.8 BUN/Creatinine Ratio 7.2 (10-20) Calcium Level 9.4 mg/dl (8.5-10.1) Total Bilirubin 1.8 mg/dl (0.2-1) Aspartate Amino Transf (AST/SGOT) 12 U/L (15-37) Alanine Aminotransferase (ALT/SGPT) 16 U/L (12-78) Alkaline Phosphatase 70 U/L (45-117) Total Protein 7.9 gm/dl (6.4-8.2) Albumin 3.7 gm/dl (3.4-5.0) Globulin 4.2 gm/dl (2.5-4.0) Albumin/Globulin Ratio 0.9 (0.9-2) Bedside Hemoglobin 15.0 g/dl (12.0-16.0) Bedside Hematocrit 44 % (37-47) Bedside Sodium 132 mEq/L (135-144) Bedside Potassium 3.9 mEq/L (3.3-5.0) Bedside Chloride 97 mEq/L (101-112) Bedside Total CO2 25 mEq/l (24-31) Anion Gap 14.0 mmol/L (16-25) Bedside Blood Urea Nitrogen 4 mg/dl (7-18) Bedside Creatinine 0.5 mg/dl (0.6-1.3) Bedside Glucose (other) 104 mg/dl (70-99) Bedside Ionized Calcium (Vincent) 1.09 mmol/l (1.12-1.32) Urine Color YELLOW Urine Appearance CLEAR (CLEAR) Urine pH 7.5 (4.5-7.5) Urine Specific [place] 1.016 (1.000-1.030) Urine Protein NEG (NEG) Urine Glucose (UA) NEG (NEG) Urine Ketones NEG (NEG) Urine Occult Blood NEG (NEG) Urine Nitrite NEG (NEG) Urine Bilirubin NEG (NEG) Urine Urobilinogen NEG (NEG) Urine Leukocyte Esterase TRACE (NEG) Urine WBC (Auto) 1-5 /hpf (0-5) Urine RBC (Auto) 0-4 /hpf (0-4) Urine Hyaline Casts (Auto) 1-5 /lpf (0-5) Urine Epithelial Cells (Auto) >30 /lpf (0-5) Urine Bacteria (Auto) 1+ (NEG) Urine Test NEG (NEG) Date/Time Source Procedure Growth Status 12/27/17 19:52 Blood Blood Culture Pending Received 12/27/17 20:15 Urine , Clean Catch Urine Culture Pending Received Results Past 24 Hours Test 12/27/17 19:45 12/27/17 19:48 12/27/17 20:00 12/27/17 20:15 Range/Units Lactic Acid Level 2.0 0.4-2.0 mmol/L White Blood Count 13.65 4.8-10.8 K/uL Red Blood Count 4.55 4.2-5.4 M/uL Hemoglobin 14.8 12.0-16.0 g/dL Hematocrit 41.2 37-47 % Mean Corpuscular Volume 90.5 80-100 fL Mean Corpuscular Hemoglobin 32.5 25-34 pg Mean Corpuscular Hemoglobin Concent 35.9 32-36 g/dl Platelet Count 187 130-400 K/uL Mean Platelet Volume 10.7 7.4-10.4 fL Neutrophils (%) (Auto) 70.4 % Lymphocytes (%) (Auto) 16.1 % Monocytes (%) (Auto) 13.1 % Eosinophils (%) (Auto) 0.1 % Basophils (%) (Auto) 0.1 % Neutrophils # (Auto) 9.59 1.4-6.5 K/uL Lymphocytes # (Auto) 2.20 1.2-3.4 K/uL Monocytes # (Auto) 1.79 0.11-0.59 K/uL Eosinophils # (Auto) 0.02 0-0.5 K/uL Basophils # (Auto) 0.02 0-0.2 K/uL RDW Standard Deviation 39.8 36.4-46.3 fL RDW Coefficient of Variation 11.9 11.5-14.5 % Immature Granulocyte % (Auto) 0.2 % Immature Granulocyte # (Auto) 0.03 0.00-0.02 K/uL Sodium Level 129 136-145 mmol/L Potassium Level 3.4 3.5-5.1 mmol/L Chloride Level 99 98-107 mmol/L Carbon Dioxide Level 23 21-32 mmol/L Anion Gap 8.0 14.0 16-25 mmol/L Blood Urea Nitrogen 5 7-18 mg/dl Creatinine 0.67 0.60-1.20 mg/dl Est Creatinine Clear Calc Drug Dose 95.4 ml/min Estimated GFR () 137.7 Estimated GFR (Non- 118.8 BUN/Creatinine Ratio 7.2 10-20 Random Glucose 95 70-99 mg/dl Calcium Level 9.4 8.5-10.1 mg/dl Total Bilirubin 1.8 0.2-1 mg/dl Aspartate Amino Transf (AST/SGOT) 12 15-37 U/L Alanine Aminotransferase (ALT/SGPT) 16 12-78 U/L Alkaline Phosphatase 70 45-117 U/L Total Protein 7.9 6.4-8.2 gm/dl Albumin 3.7 3.4-5.0 gm/dl Globulin 4.2 2.5-4.0 gm/dl Albumin/Globulin Ratio 0.9 0.9-2 Bedside Hemoglobin 15.0 12.0-16.0 g/dl Bedside Hematocrit 44 37-47 % Bedside Sodium 132 135-144 mEq/L Bedside Potassium 3.9 3.3-5.0 mEq/L Bedside Chloride 97 101-112 mEq/L Bedside Total CO2 25 24-31 mEq/l Bedside Blood Urea Nitrogen 4 7-18 mg/dl Bedside Creatinine 0.5 0.6-1.3 mg/dl Bedside Glucose (other) 104 70-99 mg/dl Bedside Ionized Calcium (Vincent) 1.09 1.12-1.32 mmol/l Urine Color YELLOW Urine Appearance CLEAR CLEAR Urine pH 7.5 4.5-7.5 Urine Specific [place] 1.016 1.000-1.030 Urine Protein NEG NEG Urine Glucose (UA) NEG NEG Urine Ketones NEG NEG Urine Occult Blood NEG NEG Urine Nitrite NEG NEG Urine Bilirubin NEG NEG Urine Urobilinogen NEG NEG Urine Leukocyte Esterase TRACE NEG Urine WBC (Auto) 1-5 0-5 /hpf Urine RBC (Auto) 0-4 0-4 /hpf Urine Hyaline Casts (Auto) 1-5 0-5 /lpf Urine Epithelial Cells (Auto) >30 0-5 /lpf Urine Bacteria (Auto) 1+ NEG Urine Test NEG NEG Microbiology Results 12/27/17 Blood Culture, Received Pending 12/27/17 Blood Culture, Received Pending 12/27/17 Urine Culture, Received Pending Diagnostic Radiology CT SCAN OF THE NECK WITH IV CONTRAST CLINICAL HISTORY: Left facial swelling. COMPARISON STUDY: CT scan of the cervical spine dated 05/03/2016. TECHNIQUE: Following the IV administration of 112 cc of Optiray 320, CT scan of the soft tissues of the neck was performed from the skull base to the upper chest. Images are reviewed in the axial, sagittal, and coronal planes. IV contrast was administered without complication. A dose lowering technique was utilized adhering to the principles of ALARA. CT DOSE: 220.13 mGy.cm FINDINGS: Pharynx: The nasopharynx, oropharynx, and laryngeal pharynx are normal in appearance. The pharyngeal airway is widely patent. There is no evidence of mass lesion. The vocal cords are symmetric. The parapharyngeal fat is well maintained. The prevertebral/retropharyngeal soft tissues are within normal limits. Dentition: Several teeth are absent. Numerous dental caries are identified. There is a large periapical lucency identified around 2 left maxillary molars. There is significant inflammatory stranding in the overlying soft tissues. A tiny fluid collection is suggested superficial to the periapical lucency is seen on image #148 measuring 6 mm. This likely represents a small abscess. Inflammatory change in the left premalar soft tissues is consistent with cellulitis. Lymphadenopathy: No cervical lymphadenopathy is seen Thyroid: Normal in size and attenuation. Salivary glands: The parotid and submandibular glands are within normal limits. Brain parenchyma: The visualized brain parenchyma at the skull base is normal in appearance. Vascular structures: The carotid arteries and jugular veins are widely patent bilaterally. Skeletal structures: Imaged portions of the calvarium at the skull base are within normal limits. The cervical spine appears intact. Sinuses and mastoids: There is moderate mucosal thickening in the left maxillary antrum. Mild mucosal thickening is seen in the left ethmoid sinuses. The remaining paranasal sinuses are clear. There is a small left mastoid effusion. The right mastoid air cells are well pneumatized. Orbits: The bony orbits are intact. Orbital contents are normal in appearance. Lung apices: Visualized apical lung parenchyma is clear. IMPRESSION: 1. There is a large periapical lucency identified around 2 left maxillary molars. There is significant overlying inflammatory change as well as a 6 mm periodontal abscess. Follow-up with dentistry is recommended. 2. There is cellulitis of the overlying left facial soft tissues. 3. Numerous additional dental caries are identified. 4. Left maxillary sinus disease as above. Impression Assessment and Plan 27-year-old female presents to the ER with facial swelling and periapical abscess. 1. Periapical abscess with left facial swelling-elevated white count tachycardia and reported fevers and chills. Poor dentition present. Abscess on CT scan. Lactate is 2 IV fluids continued. Clindamycin began. Plan to consult maxillofacial surgeon for consideration of tooth removal. 2. Tobacco abuse-patient declines NicoDerm patch at this time. 3. Hyponatremia-likely 2/2 low PO intake. 4. Depression-not managed medically, stable. DVT proph-SCDs Full Code Diet-soft mech Dispo-med/surg Malia Shields DO [facility] Hospitalist Resuscitation Status VTE Prophylaxis Will order VTE Prophylaxis: No Reason for no VTE drug order: Treatment not tolerated Reason no Mechanical VTE Order: Treatment not indicated
[2017-12-28] VITALS: BP 104/69; PULSE 102; TEMP 37.1; O2SAT 97; Ht 160 cm; Wt 48.8 kg
[2017-12-28] MEDS: SODIUM CHLORIDE 0.9% 1000ML 1,000 ML IV SCH ×2 (00:17→10:02)
--- NOTE | 2017-12-28 02:35 | EMERGENCY ROOM VISIT NOTE ---
History First contact with patient: 19:11 Chief Complaint: DENTAL PAIN Stated Complaint: PERIAPICAL ABSCESS WITH FACIAL INVOLVEMENT Nursing Triage Summary: Pt c/o L dental pain x 3 days, sx worsened today, swelling to L side of face has become greater in the past 4 hours. Pt also reports fever, chills, nausea. History of Present Illness The patient is a 27 year old female who presents to the Emergency Room with complaints of ""infection in mouth, swelling, pain, sweats". The patient states that for the past 3 days she has had left upper dental pain. She notes that she try to see her dentist however they were out of town. She then went to [facility] this morning. She states that around 7 AM she also noted left- sided facial swelling. While there she was given Augmentin, and did take 2 doses. She states that she has been using Advil and oral gel with minimal relief. She states that since 7 AM this morning the left-sided facial swelling has significantly worsened. She also notes slight difficulty breathing. She also notes feeling febrile. Review of Systems A complete 10-point Review of Systems was discussed with the patient, with pertinent positives and negatives listed in the History of Present Illness. All remaining Review of Systems questions can be considered negative unless otherwise specified. Past Medical/Surgical History Medical Problems: (1) Abdominal pain (2) Chronic constipation (3) Depression (4) Epigastric abdominal pain (5) Fall down stairs (6) GERD (gastroesophageal reflux disease) (7) H. pylori infection (8) Head pain (9) Herniated nucleus pulposis of lumbosacral region (10) Hx of migraines (11) Nausea & vomiting (12) Neck pain (13) Periapical abscess with facial involvement (14) Symptoms involving urinary system (15) Urinary tract infection Surgical Problems: (1) H/O colonoscopy (2) H/O esophagogastroduodenoscopy (3) Hx of umbilical hernia repair (4) Previous section (5) S/P appendectomy (6) S/P appendectomy (7) S/P section (8) S/P cholecystectomy (9) S/P laparoscopic cholecystectomy (10) S/P tonsillectomy Family History Cancer Diabetes mellitus Gallbladder disease Hypertension Kidney disease Kidney stones Social History Smoking Status: Current Every Day Smoker Smokeless Tobacco Use: No Alcohol Use: occasionally Drug Use: cocaine, marijuana Marital Status: Housing Status: lives with family Occupation Status: other Current/Historical Medications Scheduled Amoxicillin & Pot Clavulanate (Augmentin 500MG), 1 TAB PO TID Diclofenac (Voltaren), 75 MG PO BID Scheduled PRN Ibuprofen (Advil), 200-600 MG PO Q4H PRN for Pain Ondansetron Hcl (Zofran), 4 MG PO Q6H PRN for nausea Physical Exam Vital Signs Date Time Temp Pulse Resp B/P (MAP) Pulse Ox O2 Delivery O2 Flow Rate FiO2 12/27/17 21:15 116 18 102/76 99 Room Air 12/27/17 20:00 Room Air 12/27/17 19:49 148 12/27/17 19:06 37.3 147 20 116/83 99 Room Air Physical Exam VITAL SIGNS - Vital signs and nursing notes were reviewed. Stable. Tachycardic. Afebrile. GENERAL -27-year-old female appearing her stated age who is in no acute distress. Communicates well with provider and answers questions appropriately. SKIN - Without rashes. Left side of the face overlying the left cheek is edematous. No erythema. MOUTH/OROPHARYNX - Without perioral cyanosis. Poor dentition noted in the left superior portion of the patient's mouth. There is minimal pus drainage with evidence of extending edema from this region superiorly towards the left eye. NECK: Airways patent. Supple to palpation. no lymphadenopathy noted. No nuchal rigidity. LUNGS - Chest wall symmetric without accessory muscle use, intercostals retractions, or central cyanosis. Normal vesicular breath sounds CTA B/L. No wheezes, rales, or rhonchi appreciated. CARDIAC - RRR with S1/S2. No murmur, rubs, or gallops appreciated. Medical Decision & Procedures ER Provider Diagnostic Interpretation: CT SCAN OF THE NECK WITH IV CONTRAST CLINICAL HISTORY: Left facial swelling. COMPARISON STUDY: CT scan of the cervical spine dated 05/03/2016. TECHNIQUE: Following the IV administration of 112 cc of Optiray 320, CT scan of the soft tissues of the neck was performed from the skull base to the upper chest. Images are reviewed in the axial, sagittal, and coronal planes. IV contrast was administered without complication. A dose lowering technique was utilized adhering to the principles of ALARA. CT DOSE: 220.13 mGy.cm FINDINGS: Pharynx: The nasopharynx, oropharynx, and laryngeal pharynx are normal in appearance. The pharyngeal airway is widely patent. There is no evidence of mass lesion. The vocal cords are symmetric. The parapharyngeal fat is well maintained. The prevertebral/retropharyngeal soft tissues are within normal limits. Dentition: Several teeth are absent. Numerous dental caries are identified. There is a large periapical lucency identified around 2 left maxillary molars. There is significant inflammatory stranding in the overlying soft tissues. A tiny fluid collection is suggested superficial to the periapical lucency is seen on image #148 measuring 6 mm. This likely represents a small abscess. Inflammatory change in the left premalar soft tissues is consistent with cellulitis. Lymphadenopathy: No cervical lymphadenopathy is seen Thyroid: Normal in size and attenuation. Salivary glands: The parotid and submandibular glands are within normal limits. Brain parenchyma: The visualized brain parenchyma at the skull base is normal in appearance. Vascular structures: The carotid arteries and jugular veins are widely patent bilaterally. Skeletal structures: Imaged portions of the calvarium at the skull base are within normal limits. The cervical spine appears intact. Sinuses and mastoids: There is moderate mucosal thickening in the left maxillary antrum. Mild mucosal thickening is seen in the left ethmoid sinuses. The remaining paranasal sinuses are clear. There is a small left mastoid effusion. The right mastoid air cells are well pneumatized. Orbits: The bony orbits are intact. Orbital contents are normal in appearance. Lung apices: Visualized apical lung parenchyma is clear. IMPRESSION: 1. There is a large periapical lucency identified around 2 left maxillary molars. There is significant overlying inflammatory change as well as a 6 mm periodontal abscess. Follow-up with dentistry is recommended. 2. There is cellulitis of the overlying left facial soft tissues. 3. Numerous additional dental caries are identified. 4. Left maxillary sinus disease as above. Electronically signed by: Scottie Rabago M.D. 12/27/2017 8:59 PM Dictated Date/Time: 12/27/2017 8:51 PM Laboratory Results 12/27/17 19:48 Red Blood Count 4.55, Mean Corpuscular Volume 90.5, Mean Corpuscular Hemoglobin 32.5, Mean Corpuscular Hemoglobin Concent 35.9, Mean Platelet Volume 10.7, Neutrophils (%) (Auto) 70.4, Lymphocytes (%) (Auto) 16.1, Monocytes (%) (Auto) 13.1, Eosinophils (%) (Auto) 0.1, Basophils (%) (Auto) 0.1, Neutrophils # (Auto ) 9.59, Lymphocytes # (Auto) 2.20, Monocytes # (Auto) 1.79, Eosinophils # (Auto ) 0.02, Basophils # (Auto) 0.02 12/27/17 19:48 Test 12/27/17 19:45 12/27/17 19:48 12/27/17 20:00 12/27/17 20:15 Lactic Acid Level 2.0 mmol/L (0.4-2.0) White Blood Count 13.65 K/uL (4.8-10.8) Red Blood Count 4.55 M/uL (4.2-5.4) Hemoglobin 14.8 g/dL (12.0-16.0) Hematocrit 41.2 % (37-47) Mean Corpuscular Volume 90.5 fL (80-100) Mean Corpuscular Hemoglobin 32.5 pg (25-34) Mean Corpuscular Hemoglobin Concent 35.9 g/dl (32-36) Platelet Count 187 K/uL (130-400) Mean Platelet Volume 10.7 fL (7.4-10.4) Neutrophils (%) (Auto) 70.4 % Lymphocytes (%) (Auto) 16.1 % Monocytes (%) (Auto) 13.1 % Eosinophils (%) (Auto) 0.1 % Basophils (%) (Auto) 0.1 % Neutrophils # (Auto) 9.59 K/uL (1.4-6.5) Lymphocytes # (Auto) 2.20 K/uL (1.2-3.4) Monocytes # (Auto) 1.79 K/uL (0.11-0.59) Eosinophils # (Auto) 0.02 K/uL (0-0.5) Basophils # (Auto) 0.02 K/uL (0-0.2) RDW Standard Deviation 39.8 fL (36.4-46.3) RDW Coefficient of Variation 11.9 % (11.5-14.5) Immature Granulocyte % (Auto) 0.2 % Immature Granulocyte # (Auto) 0.03 K/uL (0.00-0.02) Est Creatinine Clear Calc Drug Dose 95.4 ml/min Estimated GFR () 137.7 Estimated GFR (Non- 118.8 BUN/Creatinine Ratio 7.2 (10-20) Calcium Level 9.4 mg/dl (8.5-10.1) Total Bilirubin 1.8 mg/dl (0.2-1) Aspartate Amino Transf (AST/SGOT) 12 U/L (15-37) Alanine Aminotransferase (ALT/SGPT) 16 U/L (12-78) Alkaline Phosphatase 70 U/L (45-117) Total Protein 7.9 gm/dl (6.4-8.2) Albumin 3.7 gm/dl (3.4-5.0) Globulin 4.2 gm/dl (2.5-4.0) Albumin/Globulin Ratio 0.9 (0.9-2) Bedside Hemoglobin 15.0 g/dl (12.0-16.0) Bedside Hematocrit 44 % (37-47) Bedside Sodium 132 mEq/L (135-144) Bedside Potassium 3.9 mEq/L (3.3-5.0) Bedside Chloride 97 mEq/L (101-112) Bedside Total CO2 25 mEq/l (24-31) Anion Gap 14.0 mmol/L (16-25) Bedside Blood Urea Nitrogen 4 mg/dl (7-18) Bedside Creatinine 0.5 mg/dl (0.6-1.3) Bedside Glucose (other) 104 mg/dl (70-99) Bedside Ionized Calcium (Vincent) 1.09 mmol/l (1.12-1.32) Urine Color YELLOW Urine Appearance CLEAR (CLEAR) Urine pH 7.5 (4.5-7.5) Urine Specific [place] 1.016 (1.000-1.030) Urine Protein NEG (NEG) Urine Glucose (UA) NEG (NEG) Urine Ketones NEG (NEG) Urine Occult Blood NEG (NEG) Urine Nitrite NEG (NEG) Urine Bilirubin NEG (NEG) Urine Urobilinogen NEG (NEG) Urine Leukocyte Esterase TRACE (NEG) Urine WBC (Auto) 1-5 /hpf (0-5) Urine RBC (Auto) 0-4 /hpf (0-4) Urine Hyaline Casts (Auto) 1-5 /lpf (0-5) Urine Epithelial Cells (Auto) >30 /lpf (0-5) Urine Bacteria (Auto) 1+ (NEG) Urine Test NEG (NEG) Medications Administered Medications (Trade) Dose Ordered Sig/Lindsey Route Start Time Stop Time Status Last Admin Dose Admin Sodium Chloride 1,000 ml @ 999 mls/hr Q1H1M STAT IV 12/27/17 19:21 12/27/17 20:21 DC 12/27/17 20:10 999 MLS/HR Morphine Sulfate (MoRPHine SULFATE INJ) 4 mg NOW STAT IV 12/27/17 19:28 12/27/17 19:34 DC 12/27/17 20:10 4 MG Ondansetron HCl (Zofran Inj) 4 mg STK-MED ONCE .ROUTE 12/27/17 20:19 12/27/17 20:20 DC 12/27/17 20:21 4 MG Doxycycline Hyclate 100 mg/ Dextrose 110 ml @ 50 mls/hr NOW STAT IV 12/27/17 20:54 12/27/17 23:05 DC 12/27/17 21:17 50 MLS/HR Clindamycin Phosphate (Cleocin 600mg/ 54ml D5W) 600 mg ONE STAT IV 12/27/17 21:24 12/27/17 21:26 DC 12/27/17 21:24 600 MG Morphine Sulfate (MoRPHine SULFATE INJ) 4 mg NOW STAT IV 12/27/17 21:50 12/27/17 21:51 DC 12/27/17 21:55 4 MG Medical Decision Patient was seen and evaluated as above. She presents to us today with left- sided facial swelling and poor dentition. She is tachycardic. After obtaining a thorough history and physical examination the above work up was performed. Leukocytosis of 13.65. No anemia. Coags reveal hyponatremia sodium 129. Potassium 3.4. No evidence of kidney or liver failure. Bilirubin high at 1.8. Urine negative. UPT negative. Decision was made to obtain a CT scan of the patient's face secondary to the amount of swelling that she was presenting with as well as pain. This does reveal large amount of cellulitis as well as a likely abscess. I did discuss the case with the attending physician, and the decision was made to provide the patient with IV antibiotics. Unfortunately, the patient had already received oral doses of Augmentin just prior to arrival. I did not want to provide additional medications of the same class like Unasyn because of the short period of time between taking the Augmentin. Decision was made to give IV doxycycline, as well as IV clindamycin. Fluids were also given and the tachycardia improved. She was given morphine for pain and Zofran for nausea. The case was discussed with the attending physician, as well as Dr. Shields, [facility] hospitalist. I do believe that the patient warrants inpatient management secondary to the rapid progression of the facial cellulitis. In addition, I also spoke with GIA Guy who was song and dance performer for [employer]. We discussed the case, and she noted that the patient would be followed in the a.m. to identify treatment modalities from the [facility] standpoint. Please refer to further documentation regarding her stay. Case was discussed with the attending physician In the evaluation and treatment of this patient the following differential diagnoses were entertained: Cellulitis, abscess, sepsis, among others. Impression Primary Impression: Periapical abscess with facial involvement Additional Impression: Hypokalemia Departure Information Dispostion Still a Patient Condition FAIR Referrals Edwin Sauer M.D. (PCP) Forms HOME CARE DOCUMENTATION FORM, IMPORTANT VISIT INFORMATION Patient Instructions My [facility] Problem Qualifiers
[2017-12-28] MEDS: MoRPHine SULFATE 4 MG/ML 1 ML CARP\\VIAL IV PRN ×5 (02:45→19:30)
[2017-12-28] MEDS: CLINDAMYCIN IV 600 MG in DEXTROSE 5% 50ML 50 ML IV SCH ×3 (04:53→19:30)
[2017-12-28 05:11] VITALS: BP 90/61; PULSE 96; TEMP 37.6; O2SAT 95
[2017-12-28 07:00] VITALS: BP 92/61; PULSE 101; TEMP 37.6; O2SAT 96
[2017-12-28] MEDS: ONDANSETRON INJ 2 MG/ML 2 ML VIAL IV PRN ×2 (07:11→15:28)
[2017-12-28 07:49] LABS: HEMOGLOBIN 12.2 g/dL (12.0-16.0); MEAN CELL VOLUME 91.8 fL (80-100); MEAN CORPUSCULAR HEMOGLOBIN 31.1 pg (25-34); MEAN CORPUSCULAR HGB CONC 33.9 g/dl (32-36); PLATELET COUNT 138 K/uL (130-400); RED CELL DISTRIBUTION WIDTH CV 12.1 % (11.5-14.5); RED CELL DISTRIBUTION WIDTH SD 40.6 fL (36.4-46.3)
[2017-12-28 08:00] VITALS: O2SAT 96
[2017-12-28 08:18] LABS: CALCIUM 8.2 mg/dl (8.5-10.1); CREATININE 0.58 mg/dl (0.60-1.20); POTASSIUM 3.8 mmol/L (3.5-5.1)
--- NOTE | 2017-12-28 10:06 | Clinical Documentation Query ---
Dr. ELIAS [facility] : CLINICAL DOCUMENTATION QUERY Patient is a 27 year old female admitted for periapical abscess. BMI noted to be 19.1 kg/m*m. In order to capture this clinical information, an associated clinical diagnosis must explicitly be documented by the provider. As appropriate, consider that as suggested below. Thank you. In your clinical opinion is this patient being managed for: ( ) Underweight/thin, BMI 19.1 kg/m*m, mild protein calorie malnutrition ( + ) Not Agree ( ) Other explanation of clinical findings (Please Explain) ( ) Unable to determine (Please Define) ( ) Need to Discuss May be a temporary finding -will not call Malnutrition The medical record reflects the following clinical findings, treatment, and risk factors. Clinical Indicators: As above Treatment: Regular diet Risk Factors: Historically, H.Pylori gastritis, currently periapical abscess. Please clarify and document your clinical opinion in the progress notes and discharge summary. Terms such as "probable", "suspected", "likely", "questionable", "possible", or "still to be ruled out" are acceptable. IF IN AGREEMENT, YOU MUST DOCUMENT ABOVE DIAGNOSTIC STATEMENT IN DAILY PROGRESS NOTES AND DISCHARGE SUMMARY. This document is not part of the patient's record. Thank You, Lion Alarcon, RN [phone]
--- NOTE | 2017-12-28 15:06 | Progress Note ---
Internal Med Progress Note Date of Service: Dec 28, 2017. Provider Documentation: SUBJECTIVE: The patient was seen and erxamined Says that the abscess popped She feels better OBJECTIVE: Vital Signs-as noted below Exam: General-Mild left facial swelling No acute distress Eyes-normal ENT-normal Neck-supple Lungs-Clear to auscultate bilaterally Heart-Regular,no murmur Abdomen-Benign,no masses Extremities-No edema Neuro-AAOx3 Lab data as noted below. ASSESSMENT & PLAN: 27-year-old female presents to the ER with facial swelling and periapical abscess. Periapical abscess with left facial swelling-elevated white count tachycardia and reported fevers and chills. Abscess on CT scan. Lactate is 2 IV fluids continued. IV Clindamycin began. Appreciate Faciomaxillary surgeon input and recommendation Will need tooth extraction in 1 to 2 weeks Will discharge home on oral Clindamycin and Lactinex Tobacco abuse-patient declines NicoDerm patch at this time. Hyponatremia-likely 2/2 low PO intake Normalized . Depression-not managed medically, stable. DVT proph-SCDs Full Code Dispo-med/surg Vital Signs: Date Time Temp Pulse Resp B/P (MAP) Pulse Ox O2 Delivery O2 Flow Rate FiO2 12/28/17 08:00 96 Room Air 12/28/17 07:00 37.6 101 16 92/61 (71) 96 Room Air 12/28/17 05:11 37.6 96 14 90/61 (71) 95 Room Air 12/28/17 00:00 37.1 102 18 104/69 97 Room Air 12/27/17 22:30 107 18 108/72 97 Room Air 12/27/17 21:15 116 18 102/76 99 Room Air 12/27/17 20:00 Room Air 12/27/17 19:49 148 12/27/17 19:06 37.3 147 20 116/83 99 Room Air Lab Results: Results Past 24 Hours Test 12/27/17 19:45 12/27/17 19:48 12/27/17 20:00 12/27/17 20:15 Range/Units Lactic Acid Level 2.0 0.4-2.0 mmol/L White Blood Count 13.65 4.8-10.8 K/uL Red Blood Count 4.55 4.2-5.4 M/uL Hemoglobin 14.8 12.0-16.0 g/dL Hematocrit 41.2 37-47 % Mean Corpuscular Volume 90.5 80-100 fL Mean Corpuscular Hemoglobin 32.5 25-34 pg Mean Corpuscular Hemoglobin Concent 35.9 32-36 g/dl Platelet Count 187 130-400 K/uL Mean Platelet Volume 10.7 7.4-10.4 fL Neutrophils (%) (Auto) 70.4 % Lymphocytes (%) (Auto) 16.1 % Monocytes (%) (Auto) 13.1 % Eosinophils (%) (Auto) 0.1 % Basophils (%) (Auto) 0.1 % Neutrophils # (Auto) 9.59 1.4-6.5 K/uL Lymphocytes # (Auto) 2.20 1.2-3.4 K/uL Monocytes # (Auto) 1.79 0.11-0.59 K/uL Eosinophils # (Auto) 0.02 0-0.5 K/uL Basophils # (Auto) 0.02 0-0.2 K/uL RDW Standard Deviation 39.8 36.4-46.3 fL RDW Coefficient of Variation 11.9 11.5-14.5 % Immature Granulocyte % (Auto) 0.2 % Immature Granulocyte # (Auto) 0.03 0.00-0.02 K/uL Sodium Level 129 136-145 mmol/L Potassium Level 3.4 3.5-5.1 mmol/L Chloride Level 99 98-107 mmol/L Carbon Dioxide Level 23 21-32 mmol/L Anion Gap 8.0 14.0 16-25 mmol/L Blood Urea Nitrogen 5 7-18 mg/dl Creatinine 0.67 0.60-1.20 mg/dl Est Creatinine Clear Calc Drug Dose 95.4 ml/min Estimated GFR () 137.7 Estimated GFR (Non- 118.8 BUN/Creatinine Ratio 7.2 10-20 Random Glucose 95 70-99 mg/dl Calcium Level 9.4 8.5-10.1 mg/dl Total Bilirubin 1.8 0.2-1 mg/dl Aspartate Amino Transf (AST/SGOT) 12 15-37 U/L Alanine Aminotransferase (ALT/SGPT) 16 12-78 U/L Alkaline Phosphatase 70 45-117 U/L Total Protein 7.9 6.4-8.2 gm/dl Albumin 3.7 3.4-5.0 gm/dl Globulin 4.2 2.5-4.0 gm/dl Albumin/Globulin Ratio 0.9 0.9-2 Bedside Hemoglobin 15.0 12.0-16.0 g/dl Bedside Hematocrit 44 37-47 % Bedside Sodium 132 135-144 mEq/L Bedside Potassium 3.9 3.3-5.0 mEq/L Bedside Chloride 97 101-112 mEq/L Bedside Total CO2 25 24-31 mEq/l Bedside Blood Urea Nitrogen 4 7-18 mg/dl Bedside Creatinine 0.5 0.6-1.3 mg/dl Bedside Glucose (other) 104 70-99 mg/dl Bedside Ionized Calcium (Vincent) 1.09 1.12-1.32 mmol/l Urine Color YELLOW Urine Appearance CLEAR CLEAR Urine pH 7.5 4.5-7.5 Urine Specific [place] 1.016 1.000-1.030 Urine Protein NEG NEG Urine Glucose (UA) NEG NEG Urine Ketones NEG NEG Urine Occult Blood NEG NEG Urine Nitrite NEG NEG Urine Bilirubin NEG NEG Urine Urobilinogen NEG NEG Urine Leukocyte Esterase TRACE NEG Urine WBC (Auto) 1-5 0-5 /hpf Urine RBC (Auto) 0-4 0-4 /hpf Urine Hyaline Casts (Auto) 1-5 0-5 /lpf Urine Epithelial Cells (Auto) >30 0-5 /lpf Urine Bacteria (Auto) 1+ NEG Urine Test NEG NEG Test 12/28/17 07:35 Range/Units White Blood Count 6.40 4.8-10.8 K/uL Red Blood Count 3.92 4.2-5.4 M/uL Hemoglobin 12.2 12.0-16.0 g/dL Hematocrit 36.0 37-47 % Mean Corpuscular Volume 91.8 80-100 fL Mean Corpuscular Hemoglobin 31.1 25-34 pg Mean Corpuscular Hemoglobin Concent 33.9 32-36 g/dl RDW Standard Deviation 40.6 36.4-46.3 fL RDW Coefficient of Variation 12.1 11.5-14.5 % Platelet Count 138 130-400 K/uL Mean Platelet Volume 10.0 7.4-10.4 fL Sodium Level 134 136-145 mmol/L Potassium Level 3.8 3.5-5.1 mmol/L Chloride Level 102 98-107 mmol/L Carbon Dioxide Level 29 21-32 mmol/L Anion Gap 3.0 3-11 mmol/L Blood Urea Nitrogen 5 7-18 mg/dl Creatinine 0.58 0.60-1.20 mg/dl Est Creatinine Clear Calc Drug Dose 110.3 ml/min Estimated GFR () 144.4 Estimated GFR (Non- 124.6 BUN/Creatinine Ratio 8.0 10-20 Random Glucose 84 70-99 mg/dl Calcium Level 8.2 8.5-10.1 mg/dl Microbiology Results 12/27/17 Blood Culture, Received Pending 12/27/17 Blood Culture, Received Pending 12/27/17 Urine Culture - Preliminary, Resulted NO GROWTH - LESS THAN 1,000 COLONIES/...
[2017-12-28 15:23] VITALS: BP 90/60; PULSE 70; TEMP 37.4; O2SAT 97
[2017-12-28] MEDS: KETOROLAC TROMETHAMINE 15 MG/ML VIAL IV. PRN (22:17)
[2017-12-28 23:28] VITALS: BP 94/60; PULSE 90; TEMP 37.1; O2SAT 97
[2017-12-29] MEDS: ONDANSETRON INJ 2 MG/ML 2 ML VIAL IV PRN (00:07)
[2017-12-29] MEDS: MoRPHine SULFATE 4 MG/ML 1 ML CARP\\VIAL IV PRN ×4 (00:07→13:02)
[2017-12-29] MEDS: CLINDAMYCIN IV 600 MG in DEXTROSE 5% 50ML 50 ML IV SCH (04:47)
[2017-12-29 07:03] VITALS: BP 91/58; PULSE 91; TEMP 37.1; O2SAT 97
[2017-12-29 08:00] VITALS: O2SAT 97
[2017-12-29 11:08] LABS: HEMATOCRIT 36.7 % (37-47); HEMOGLOBIN 12.5 g/dL (12.0-16.0); MEAN CELL VOLUME 91.5 fL (80-100); MEAN CORPUSCULAR HEMOGLOBIN 31.2 pg (25-34); MEAN CORPUSCULAR HGB CONC 34.1 g/dl (32-36); MEAN PLATELET VOLUME 10.1 fL (7.4-10.4); PLATELET COUNT 157 K/uL (130-400); RED CELL DISTRIBUTION WIDTH CV 11.8 % (11.5-14.5); RED CELL DISTRIBUTION WIDTH SD 40.1 fL (36.4-46.3); WHITE BLOOD COUNT 5.63 K/uL (4.8-10.8)
[2017-12-29 11:27] VITALS: BP 91/58; PULSE 91; TEMP 37.1; O2SAT 97
[2017-12-29 11:33] LABS: CALCIUM 8.7 mg/dl (8.5-10.1); CREATININE 0.53 mg/dl (0.60-1.20)
--- NOTE | 2017-12-29 11:34 | Progress Note ---
Internal Med Progress Note Date of Service: Dec 29, 2017. Provider Documentation: SUBJECTIVE: The patient was seen and examined Says that the abscess popped A lot better today Denies any pain OBJECTIVE: Vital Signs-as noted below Exam: General-no more facial swelling No acute distress Eyes-normal ENT-normal Neck-supple Lungs-Clear to auscultate bilaterally Heart-Regular,no murmur Abdomen-Benign,no masses Extremities-No edema Neuro-AAOx3 Lab data as noted below. ASSESSMENT & PLAN: 27-year-old female presents to the ER with facial swelling and periapical abscess. Periapical abscess with left facial swelling-elevated white count tachycardia and reported fevers and chills. Abscess on CT scan. Lactate is 2 IV fluids continued. IV Clindamycin began. Appreciate Faciomaxillary surgeon input and recommendation Will need tooth extraction in 1 to 2 weeks Will discharge home on oral Clindamycin and Lactinex Clinically a lot better Discharge home today Tobacco abuse-patient declines NicoDerm patch at this time. Hyponatremia-likely 2/2 low PO intake Normalized . Depression-not managed medically, stable. DVT proph-SCDs Full Code Dispo-med/surg Vital Signs: Date Time Temp Pulse Resp B/P (MAP) Pulse Ox O2 Delivery O2 Flow Rate FiO2 12/29/17 11:27 37.1 91 18 97 Room Air 12/29/17 08:00 97 Room Air 12/29/17 07:03 37.1 91 18 91/58 (69) 97 Room Air 12/29/17 00:00 Room Air 12/28/17 23:28 37.1 90 18 94/60 (71) 97 Room Air 12/28/17 15:30 Room Air 12/28/17 15:23 37.4 70 18 90/60 (70) 97 Room Air Lab Results: Results Past 24 Hours Test 12/29/17 10:58 Range/Units White Blood Count 5.63 4.8-10.8 K/uL Red Blood Count 4.01 4.2-5.4 M/uL Hemoglobin 12.5 12.0-16.0 g/dL Hematocrit 36.7 37-47 % Mean Corpuscular Volume 91.5 80-100 fL Mean Corpuscular Hemoglobin 31.2 25-34 pg Mean Corpuscular Hemoglobin Concent 34.1 32-36 g/dl RDW Standard Deviation 40.1 36.4-46.3 fL RDW Coefficient of Variation 11.8 11.5-14.5 % Platelet Count 157 130-400 K/uL Mean Platelet Volume 10.1 7.4-10.4 fL
[2017-12-29] MEDS: KETOROLAC TROMETHAMINE 15 MG/ML VIAL IV. PRN (11:36)
[2017-12-29] MEDS ORDERED: LACTOBACILLUS ACIDOPHILUS (FLORANEX) TAB PO SCH (12:00)
[2017-12-29] MEDS ORDERED: CLC150 PO (13:17)
[2017-12-29] MEDS ORDERED: LCTX PO (13:17)
--- NOTE | 2017-12-29 13:20 | Discharge Instructions ---
Discharge Instructions Date of Service Dec 29, 2017. Admission Reason for Admission: Periapical Abscess With Facial Involvement Discharge Discharge Diagnosis / Problem: Periapical Abscess left Maxillary Molars Discharge Goals Goal(s): Prevent Disease Progression Activity Recommendations Activity Limitations: resume your previous activity . Instructions / Follow-Up Instructions / Follow-Up Dr Sauer on 01/04/18 at 3:[address] Santiago's office at # for an appointment in 7 to 10 days Current Hospital Diet Patient's current hospital diet: Regular Diet Discharge Diet Recommended Diet: Regular Diet Pending Studies Studies pending at discharge: no Medical Emergencies . Who to Call and When: Medical Emergencies: If at any time you feel your situation is an emergency, please call 911 immediately. . Non-Emergent Contact Non-Emergency issues call your: Primary Care Provider . Past History Medical & Surgical History: (1) Periapical abscess with facial involvement . "Provider Documentation" section prepared by Kristopher Hastings. .
[2017-12-29] MEDS ORDERED: CLINDAMYCIN HCL 150 MG CAP PO SCH (14:00)
--- NOTE | 2017-12-30 08:03 | Discharge Summary ---
Discharge Summary Date of Service Dec 30, 2017. Discharge Summary Admission Date: Dec 27, 2017 at 22:20 Discharge Date: Dec 29, 2017 Discharge Disposition: Home Principal Diagnosis: Periapical Abscess left Maxillary Molars Secondary Diagnoses/Problems: Please see H&P and Hospital Progress note Consultations: Orofacial Surgeon Medication Reconciliation New Medications: Clindamycin HCl (Clindamycin HCl) 150 Mg Cap 300 MG PO TID for 5 Days, #30 CAP Lactobacillus Acidophilus (Floranex) 1 Tab Tab 4 TAB PO TIDM for 5 Days, #60 TAB Continued Medications: Diclofenac (Voltaren) 75 Mg Tabcr 75 MG PO BID, TAB WITH FOOD Ibuprofen (Advil) 200 Mg Tab 200-600 MG PO Q4H PRN for Pain Ondansetron Hcl (Zofran) 4 Mg Tab 4 MG PO Q6H PRN for nausea, TAB Discontinued Medications: Amoxicillin & Pot Clavulanate (Augmentin 500MG) Unknown Strength Tab 1 TAB PO TID for 10 Days, TAB Admission Information HPI (per Admitting provider): The patient is a 27-year-old female who presents to the ER with facial swelling and left-sided tooth pain. She reports her mouth started to hurt her 3 days ago. She took some Advil with some relief but the pain increased the next day. She began to have fevers and chills as well as diffuse body sweats 2 days ago. She went to see a dentist at [facility] who gave her 10 days of Augmentin after an x-ray revealed signs of infection. She states that the dentist told her he could not pull the tooth because he needed an oral surgeon who is currently out of town. The patient is having difficulties tolerating food because of the pressure it puts on her infection infected tooth. She is able to tolerate liquids and soft foods at this time. She has a history of multiple tooth extractions treated at [facility] oral maxillofacial surgeons by Dr. Santiago in the past. She denies having partials or dentures at this time. Review of systems is otherwise negative for abdominal pain, diarrhea or recent trauma to her tooth. She has no pain in her neck and denies any issues with swallowing. There is no lymphadenopathy in her neck on exam. There is no erythema of the face but left mandibular swelling is present and significant. Facial CT done in the ER reveals a 6 mm periapical abscess. Physical exam reveals presence of pus draining from upper left tooth area. Past Medical/Surgical History Medical Problems: (1) Abdominal pain Status: Chronic (2) Biliary dyskinesia Status: Chronic (3) Chronic constipation Status: Chronic (4) Depression Status: Chronic (5) Depression Status: Chronic (6) Epigastric abdominal pain Status: Resolved (7) Fall down stairs Status: Resolved (8) GERD (gastroesophageal reflux disease) Status: Chronic (9) H. pylori infection Permanent Comment: recurrent Status: Chronic (10) Head pain Status: Resolved (11) Herniated nucleus pulposis of lumbosacral region Permanent Comment: noncompressive L5-S1 disc protrusion on MRI 02/13 Status: Chronic (12) Herniated nucleus pulposus of lumbosacral region Status: Chronic (13) Hx of migraines Status: Chronic (14) Migraine with aura Status: Chronic (15) Nausea & vomiting Status: Resolved (16) Neck pain Status: Resolved (17) Symptoms involving urinary system Status: Resolved (18) Tobacco abuse Status: Chronic (19) Urinary tract infection Status: Resolved Surgical Problems: (1) H/O colonoscopy Permanent Comment: 12/23/2014- 2 polyps, biopsies negative, otherwise normal Status: Chronic (2) H/O esophagogastroduodenoscopy Permanent Comment: 09/09/15: EGD showed gastritis with biopsies positive for H pylori. Specimens obtained for H pylori culture and sensitivity, however, were lost by the lab. Status: Chronic (3) Hx of umbilical hernia repair Status: Chronic (4) Previous section Status: Resolved (5) S/P appendectomy Status: Resolved (6) S/P appendectomy Status: Chronic (7) S/P appy Status: Chronic (8) S/P Status: Chronic (9) S/P section Permanent Comment: 08/21/13 Status: Chronic (10) S/P maggie Status: Chronic (11) S/P cholecystectomy Status: Resolved (12) S/P laparoscopic cholecystectomy Status: Chronic (13) S/P T&A (status post tonsillectomy and adenoidectomy) Status: Chronic (14) S/P tonsillectomy Status: Chronic (15) S/P tooth extraction Permanent Comment: multiple teeth extracted in the past Status: Chronic Family History Cancer Diabetes mellitus Gallbladder disease Hypertension Kidney disease Kidney stones Social History Smoking Status: Current Every Day Smoker Smokeless Tobacco Use: No Alcohol Use: none Drug Use: cocaine, marijuana Marital Status: Housing status: lives with family (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 [employer]), lives with significant other Occupational Status: other Immunizations History of Influenza Vaccine: Yes Influenza Vaccine Date: Aug 23, 2013 History of Tetanus Vaccine?: Yes Tetanus Immunization Date: Jun 19, 2013 History of Pneumococcal: No History of Hepatitis B Vaccine: No Allergies Coded Allergies: Prochlorperazine (Verified Allergy, Intermediate, Panic Attack, 12/27/17) Acetaminophen (Verified Allergy, Unknown, unknown, 12/27/17) Polyethylene Glycol (Verified Allergy, Unknown, UNKNOWN, 12/27/17) Sodium Sulfate (Verified Allergy, Unknown, UNKNOWN, 12/27/17) Hydrocodone (Verified Adverse Reaction, Unknown, gi upset/emesis, 12/27/17) pt Uncoded Allergies: BOWEL PREP (Allergy, Unknown, HIVES, 01/10/15) Home Medications Scheduled Amoxicillin & Pot Clavulanate (Augmentin 500MG), 1 TAB PO TID Diclofenac (Voltaren), 75 MG PO BID Scheduled PRN Ibuprofen (Advil), 200-600 MG PO Q4H PRN for Pain Ondansetron Hcl (Zofran), 4 MG PO Q6H PRN for nausea Review of Systems At least 10 systems reviewed and negative except as indicated in HPI. Physical Exam H&P v2 Physical Exam Vital Signs Date Time Temp Pulse Resp B/P (MAP) Pulse Ox O2 Delivery O2 Flow Rate FiO2 12/27/17 21:15 116 18 102/76 99 Room Air 12/27/17 20:00 Room Air 12/27/17 19:49 148 12/27/17 19:06 37.3 147 20 116/83 99 Room Air General Appearance: WD/WN, no apparent distress Head: normocephalic, atraumatic Eyes: normal inspection, PERRL, sclerae normal ENT: pharynx normal, + pertinent finding (pus draining from upper left tooth area, facial swelling without superficial erythema present on L side of face/ mandible not involving neck. 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, no motor/sensory deficits, alert, normal mood/affect, oriented x 3 Skin: normal color, warm/dry, no rash Diagnostics H&P v2 Diagnostics Laboratory Results 12/27/17 19:48 Red Blood Count 4.55, Mean Corpuscular Volume 90.5, Mean Corpuscular Hemoglobin 32.5, Mean Corpuscular Hemoglobin Concent 35.9, Mean Platelet Volume 10.7, Neutrophils (%) (Auto) 70.4, Lymphocytes (%) (Auto) 16.1, Monocytes (%) (Auto) 13.1, Eosinophils (%) (Auto) 0.1, Basophils (%) (Auto) 0.1, Neutrophils # (Auto ) 9.59, Lymphocytes # (Auto) 2.20, Monocytes # (Auto) 1.79, Eosinophils # (Auto ) 0.02, Basophils # (Auto) 0.02 12/27/17 19:48 Test 12/27/17 19:45 12/27/17 19:48 12/27/17 20:00 12/27/17 20:15 Lactic Acid Level 2.0 mmol/L (0.4-2.0) White Blood Count 13.65 K/uL (4.8-10.8) Red Blood Count 4.55 M/uL (4.2-5.4) Hemoglobin 14.8 g/dL (12.0-16.0) Hematocrit 41.2 % (37-47) Mean Corpuscular Volume 90.5 fL (80-100) Mean Corpuscular Hemoglobin 32.5 pg (25-34) Mean Corpuscular Hemoglobin Concent 35.9 g/dl (32-36) Platelet Count 187 K/uL (130-400) Mean Platelet Volume 10.7 fL (7.4-10.4) Neutrophils (%) (Auto) 70.4 % Lymphocytes (%) (Auto) 16.1 % Monocytes (%) (Auto) 13.1 % Eosinophils (%) (Auto) 0.1 % Basophils (%) (Auto) 0.1 % Neutrophils # (Auto) 9.59 K/uL (1.4-6.5) Lymphocytes # (Auto) 2.20 K/uL (1.2-3.4) Monocytes # (Auto) 1.79 K/uL (0.11-0.59) Eosinophils # (Auto) 0.02 K/uL (0-0.5) Basophils # (Auto) 0.02 K/uL (0-0.2) RDW Standard Deviation 39.8 fL (36.4-46.3) RDW Coefficient of Variation 11.9 % (11.5-14.5) Immature Granulocyte % (Auto) 0.2 % Immature Granulocyte # (Auto) 0.03 K/uL (0.00-0.02) Est Creatinine Clear Calc Drug Dose 95.4 ml/min Estimated GFR () 137.7 Estimated GFR (Non- 118.8 BUN/Creatinine Ratio 7.2 (10-20) Calcium Level 9.4 mg/dl (8.5-10.1) Total Bilirubin 1.8 mg/dl (0.2-1) Aspartate Amino Transf (AST/SGOT) 12 U/L (15-37) Alanine Aminotransferase (ALT/SGPT) 16 U/L (12-78) Alkaline Phosphatase 70 U/L (45-117) Total Protein 7.9 gm/dl (6.4-8.2) Albumin 3.7 gm/dl (3.4-5.0) Globulin 4.2 gm/dl (2.5-4.0) Albumin/Globulin Ratio 0.9 (0.9-2) Bedside Hemoglobin 15.0 g/dl (12.0-16.0) Bedside Hematocrit 44 % (37-47) Bedside Sodium 132 mEq/L (135-144) Bedside Potassium 3.9 mEq/L (3.3-5.0) Bedside Chloride 97 mEq/L (101-112) Bedside Total CO2 25 mEq/l (24-31) Anion Gap 14.0 mmol/L (16-25) Bedside Blood Urea Nitrogen 4 mg/dl (7-18) Bedside Creatinine 0.5 mg/dl (0.6-1.3) Bedside Glucose (other) 104 mg/dl (70-99) Bedside Ionized Calcium (Vincent) 1.09 mmol/l (1.12-1.32) Urine Color YELLOW Urine Appearance CLEAR (CLEAR) Urine pH 7.5 (4.5-7.5) Urine Specific [place] 1.016 (1.000-1.030) Urine Protein NEG (NEG) Urine Glucose (UA) NEG (NEG) Urine Ketones NEG (NEG) Urine Occult Blood NEG (NEG) Urine Nitrite NEG (NEG) Urine Bilirubin NEG (NEG) Urine Urobilinogen NEG (NEG) Urine Leukocyte Esterase TRACE (NEG) Urine WBC (Auto) 1-5 /hpf (0-5) Urine RBC (Auto) 0-4 /hpf (0-4) Urine Hyaline Casts (Auto) 1-5 /lpf (0-5) Urine Epithelial Cells (Auto) >30 /lpf (0-5) Urine Bacteria (Auto) 1+ (NEG) Urine Test NEG (NEG) Date/Time Source Procedure Growth Status 12/27/17 19:52 Blood Blood Culture Pending Received 12/27/17 20:15 Urine , Clean Catch Urine Culture Pending Received Results Past 24 Hours Test 12/27/17 19:45 12/27/17 19:48 12/27/17 20:00 12/27/17 20:15 Range/Units Lactic Acid Level 2.0 0.4-2.0 mmol/L White Blood Count 13.65 4.8-10.8 K/uL Red Blood Count 4.55 4.2-5.4 M/uL Hemoglobin 14.8 12.0-16.0 g/dL Hematocrit 41.2 37-47 % Mean Corpuscular Volume 90.5 80-100 fL Mean Corpuscular Hemoglobin 32.5 25-34 pg Mean Corpuscular Hemoglobin Concent 35.9 32-36 g/dl Platelet Count 187 130-400 K/uL Mean Platelet Volume 10.7 7.4-10.4 fL Neutrophils (%) (Auto) 70.4 % Lymphocytes (%) (Auto) 16.1 % Monocytes (%) (Auto) 13.1 % Eosinophils (%) (Auto) 0.1 % Basophils (%) (Auto) 0.1 % Neutrophils # (Auto) 9.59 1.4-6.5 K/uL Lymphocytes # (Auto) 2.20 1.2-3.4 K/uL Monocytes # (Auto) 1.79 0.11-0.59 K/uL Eosinophils # (Auto) 0.02 0-0.5 K/uL Basophils # (Auto) 0.02 0-0.2 K/uL RDW Standard Deviation 39.8 36.4-46.3 fL RDW Coefficient of Variation 11.9 11.5-14.5 % Immature Granulocyte % (Auto) 0.2 % Immature Granulocyte # (Auto) 0.03 0.00-0.02 K/uL Sodium Level 129 136-145 mmol/L Potassium Level 3.4 3.5-5.1 mmol/L Chloride Level 99 98-107 mmol/L Carbon Dioxide Level 23 21-32 mmol/L Anion Gap 8.0 14.0 16-25 mmol/L Blood Urea Nitrogen 5 7-18 mg/dl Creatinine 0.67 0.60-1.20 mg/dl Est Creatinine Clear Calc Drug Dose 95.4 ml/min Estimated GFR () 137.7 Estimated GFR (Non- 118.8 BUN/Creatinine Ratio 7.2 10-20 Random Glucose 95 70-99 mg/dl Calcium Level 9.4 8.5-10.1 mg/dl Total Bilirubin 1.8 0.2-1 mg/dl Aspartate Amino Transf (AST/SGOT) 12 15-37 U/L Alanine Aminotransferase (ALT/SGPT) 16 12-78 U/L Alkaline Phosphatase 70 45-117 U/L Total Protein 7.9 6.4-8.2 gm/dl Albumin 3.7 3.4-5.0 gm/dl Globulin 4.2 2.5-4.0 gm/dl Albumin/Globulin Ratio 0.9 0.9-2 Bedside Hemoglobin 15.0 12.0-16.0 g/dl Bedside Hematocrit 44 37-47 % Bedside Sodium 132 135-144 mEq/L Bedside Potassium 3.9 3.3-5.0 mEq/L Bedside Chloride 97 101-112 mEq/L Bedside Total CO2 25 24-31 mEq/l Bedside Blood Urea Nitrogen 4 7-18 mg/dl Bedside Creatinine 0.5 0.6-1.3 mg/dl Bedside Glucose (other) 104 70-99 mg/dl Bedside Ionized Calcium (Vincent) 1.09 1.12-1.32 mmol/l Urine Color YELLOW Urine Appearance CLEAR CLEAR Urine pH 7.5 4.5-7.5 Urine Specific [place] 1.016 1.000-1.030 Urine Protein NEG NEG Urine Glucose (UA) NEG NEG Urine Ketones NEG NEG Urine Occult Blood NEG NEG Urine Nitrite NEG NEG Urine Bilirubin NEG NEG Urine Urobilinogen NEG NEG Urine Leukocyte Esterase TRACE NEG Urine WBC (Auto) 1-5 0-5 /hpf Urine RBC (Auto) 0-4 0-4 /hpf Urine Hyaline Casts (Auto) 1-5 0-5 /lpf Urine Epithelial Cells (Auto) >30 0-5 /lpf Urine Bacteria (Auto) 1+ NEG Urine Test NEG NEG Microbiology Results 12/27/17 Blood Culture, Received Pending 12/27/17 Blood Culture, Received Pending 12/27/17 Urine Culture, Received Pending Diagnostic Radiology CT SCAN OF THE NECK WITH IV CONTRAST CLINICAL HISTORY: Left facial swelling. COMPARISON STUDY: CT scan of the cervical spine dated 05/03/2016. TECHNIQUE: Following the IV administration of 112 cc of Optiray 320, CT scan of the soft tissues of the neck was performed from the skull base to the upper chest. Images are reviewed in the axial, sagittal, and coronal planes. IV contrast was administered without complication. A dose lowering technique was utilized adhering to the principles of ALARA. CT DOSE: 220.13 mGy.cm FINDINGS: Pharynx: The nasopharynx, oropharynx, and laryngeal pharynx are normal in appearance. The pharyngeal airway is widely patent. There is no evidence of mass lesion. The vocal cords are symmetric. The parapharyngeal fat is well maintained. The prevertebral/retropharyngeal soft tissues are within normal limits. Dentition: Several teeth are absent. Numerous dental caries are identified. There is a large periapical lucency identified around 2 left maxillary molars. There is significant inflammatory stranding in the overlying soft tissues. A tiny fluid collection is suggested superficial to the periapical lucency is seen on image #148 measuring 6 mm. This likely represents a small abscess. Inflammatory change in the left premalar soft tissues is consistent with cellulitis. Lymphadenopathy: No cervical lymphadenopathy is seen Thyroid: Normal in size and attenuation. Salivary glands: The parotid and submandibular glands are within normal limits. Brain parenchyma: The visualized brain parenchyma at the skull base is normal in appearance. Vascular structures: The carotid arteries and jugular veins are widely patent bilaterally. Skeletal structures: Imaged portions of the calvarium at the skull base are within normal limits. The cervical spine appears intact. Sinuses and mastoids: There is moderate mucosal thickening in the left maxillary antrum. Mild mucosal thickening is seen in the left ethmoid sinuses. The remaining paranasal sinuses are clear. There is a small left mastoid effusion. The right mastoid air cells are well pneumatized. Orbits: The bony orbits are intact. Orbital contents are normal in appearance. Lung apices: Visualized apical lung parenchyma is clear. IMPRESSION: 1. There is a large periapical lucency identified around 2 left maxillary molars. There is significant overlying inflammatory change as well as a 6 mm periodontal abscess. Follow-up with dentistry is recommended. 2. There is cellulitis of the overlying left facial soft tissues. 3. Numerous additional dental caries are identified. 4. Left maxillary sinus disease as above. Impression H&P v2 Impression Assessment and Plan 27-year-old female presents to the ER with facial swelling and periapical abscess. 1. Periapical abscess with left facial swelling-elevated white count tachycardia and reported fevers and chills. Poor dentition present. Abscess on CT scan. Lactate is 2 IV fluids continued. Clindamycin began. Plan to consult maxillofacial surgeon for consideration of tooth removal. 2. Tobacco abuse-patient declines NicoDerm patch at this time. 3. Hyponatremia-likely 2/2 low PO intake. 4. Depression-not managed medically, stable. DVT proph-SCDs Full Code Diet-soft mech Dispo-med/surg Malia Shields DO [facility] Hospitalist Resuscitation Status VTE Prophylaxis Will order VTE Prophylaxis: No Reason for no VTE drug order: Treatment not tolerated Reason no Mechanical VTE Order: Treatment not indicated Physical Exam (per Admitting): General Appearance: WD/WN, no apparent distress Head: normocephalic, atraumatic Eyes: normal inspection, PERRL, sclerae normal ENT: pharynx normal, + pertinent finding (pus draining from upper left tooth area, facial swelling without superficial erythema present on L side of face/mandible not involving neck. 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 Periapical abscess with left facial swelling-elevated white count tachycardia and reported fevers and chills. Abscess on CT scan. Lactate is 2 IV fluids continued. IV Clindamycin began. Appreciate Faciomaxillary surgeon input and recommendation Will need tooth extraction in 1 to 2 weeks Will discharge home on oral Clindamycin and Lactinex Clinically a lot better Discharge home today Tobacco abuse-patient declines NicoDerm patch at this time. Hyponatremia-likely 2/2 low PO intake Normalized . Depression-not managed medically, stable. DVT proph-SCDs Full Code Dispo-med/surg Total time spent on discharge = 35 minutes This includes examination of the patient, discharge planning, medication reconciliation, and communication with other providers. Discharge Instructions Date of Service Dec 29, 2017. Admission Reason for Admission: Periapical Abscess With Facial Involvement Discharge Discharge Diagnosis / Problem: Periapical Abscess left Maxillary Molars Discharge Goals Goal(s): Prevent Disease Progression Activity Recommendations Activity Limitations: resume your previous activity . Instructions / Follow-Up Instructions / Follow-Up Dr Sauer on 01/04/18 at 3:[address] Santiago's office at # [phone] for an appointment in 7 to 10 days Current Hospital Diet Patient's current hospital diet: Regular Diet Discharge Diet Recommended Diet: Regular Diet Pending Studies Studies pending at discharge: no Medical Emergencies . Who to Call and When: Medical Emergencies: If at any time you feel your situation is an emergency, please call 911 immediately. . Non-Emergent Contact Non-Emergency issues call your: Primary Care Provider . Past History Medical & Surgical History: (1) Periapical abscess with facial involvement . "Provider Documentation" section prepared by Kristopher Hastings. . <Electronically signed by Kristopher Hastings M.D.> Signed: 12/29/17 1320 Additional Copies To Edwin Sauer M.D.
== END 2017-12-29 13:49 | disposition home or self-care (01) | DRG 158 ==
LOC: C.EDB 19:05 → C.MS2W 22:20 → ENRESERV 22:45
PROVIDERS: ADMIT Hospitalist; ATTEND Internal Medicine
DX: K04.6 Periapical abscess with sinus (principal); E87.1 Hypo-osmolality and hyponatremia; F32.9 Major depressive disorder, single episode, unspecified; K21.9 Gastro-esophageal reflux disease without esophagitis; Z87.440 Personal history of urinary (tract) infections; E87.6 Hypokalemia; R00.0 Tachycardia, unspecified; F12.10 Cannabis abuse, uncomplicated; F14.10 Cocaine abuse, uncomplicated; F17.200 Nicotine dependence, unspecified, uncomplicated; Z90.49 Acquired absence of other specified parts of digestive tract; Z80.9 Family history of malignant neoplasm, unspecified; Z83.3 Family history of diabetes mellitus; Z82.49 Family history of ischemic heart disease and other diseases of the circulatory system; Z84.1 Family history of disorders of kidney and ureter

== ENCOUNTER 2018-02-11 13:47 | Emergency (ER) | payer BC ==
[~2018-02-11] VITALS: Ht 157.5 cm; Wt 48.6 kg
[~2018-02-11 13:47] MED LIST changes: +CLC150 PO; +DICL-201 PO; -DICL75TA2 PO; +LCTX PO; +ONDA4TAB65 PO
[2018-02-11 13:54] VITALS: TEMP 36.5; Ht 157.5 cm; Wt 48.6 kg
[2018-02-11] MEDS ORDERED: KETOROLAC TROMETHAMINE 60 MG/2 ML VIAL IM STA (14:13)
--- NOTE | 2018-02-11 14:38 | DIAGNOSTIC IMAGING REPORT ---
L HIP UNILATERAL 2 VIEWS CLINICAL HISTORY: left hip pain pain COMPARISON: None. DISCUSSION: Old healed fracture proximal femoral shaft. No acute abnormality of the left hip. No evidence for acetabular protrusion. No abnormal depressed reaction. There is no evidence for soft tissue swelling. IMPRESSION: 1. No acute abnormality of the left hip. 2. Old healed fracture proximal femoral shaft The above report was generated using voice recognition software. It may contain grammatical, syntax or spelling errors. Electronically signed by: Francisco James M.D. 02/11/2018 2:37 PM Dictated Date/Time: 02/11/2018 2:36 PM
[2018-02-11] MEDS ORDERED: METH4PAK PO (14:57)
--- NOTE | 2018-02-11 14:59 | EMERGENCY ROOM VISIT NOTE ---
ED Visit Note First contact with patient: 14:02 CHIEF COMPLAINT: Left hip pain HISTORY OF PRESENT ILLNESS: This 27-year-old female patient presents to the emergency department, ambulatory, complaining of chronic left hip pain which has become worse over the past few days. The patient states she injured her leg at work and September, and has been following with Dr. Tate from [facility]. The patient describes a burning sensation on the lateral aspect of the hip and radiating into the thigh. She states her knee occasionally locks and pops, which causes difficulty standing for long periods of time. The patient states over the past few days the symptoms have been worsening, but denies any new injury. 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 The patient did have one cortisone injection performed by her orthopedic surgeon, and did note improvement in her symptoms. The patient contacted the on -call orthopedic surgeon, and was told to come to the emergency department, as they were unable to assess her over the phone. The patient will be seen tomorrow in the office. She describes the pain as a burning sensation, and states it is worse on palpation or with movement. The pain does radiate mildly up into the back. She denies any numbness or tingling. She denies any weakness. She denies dizziness, nausea, or vomiting. She denies any bowel or bladder disturbances. REVIEW OF SYSTEMS: A 10 system review of systems was performed with positives and pertinent negatives listed in the history of present illness. All other systems were reviewed and are negative. ALLERGIES: [place], polyethylene glycol, Compazine, sodium sulfate MEDICATIONS: Ibuprofen, diclofenac PMH: "Stomach problems" SOCIAL HISTORY: The patient lives locally with family. She denies drug, alcohol use. Patient admits to smoking cigarettes daily. PHYSICAL EXAM: VITALS: Vitals are noted on the nurse's note and reviewed by myself. Vital signs stable. GENERAL: This is a 27-year-old white female, in no acute distress, nondiaphoretic, well-developed well-nourished. MUSCULOSKELETAL: The left hip is tender to palpation over the joints and down into the left lateral femur and into the SI joint. There is no low back tenderness. The patient has full range of motion, however external rotation at the joint is painful. The patient is able to bear weight and does not walk with a limp. RAJEEV test positive. Strength of the quadriceps and hamstring muscles 5/5 bilaterally. Neurovascular status intact. Dorsal pedal pulse 2+. Capillary refill less than 2 seconds. NEURO: Patient was alert and oriented to person, place, and time. Patellar reflex 2+. Normal sensation to light and sharp touch. No focal neurological deficits. EMERGENCY DEPARTMENT COURSE: The patient was seen and evaluated as above. She was given 30 mg Toradol IM for her symptoms. An x-ray of the left hip was performed to rule out new or acute injury. The patient was reassessed and notes mild improvement in her symptoms. She will be discharged home on a Medrol Dosepak with close follow-up by orthopedics tomorrow. The patient was agreeable to this plan of care. All questions were answered to her satisfaction. Discharge instructions reviewed, the patient was discharged home in good condition. I attest that I have personally reviewed the patient's current medication list. Patient was found to have normal blood pressure on screening and does not require follow-up. Etiologies such as soft tissue injury, fracture, dislocation, bursitis, neurovascular compromise, compartment syndrome, as well as others were entertained. DIAGNOSIS: Left hip pain The chart was completed utilizing [employer] Speech voice recognition software. Grammatical errors, random word insertions, pronoun errors, and incomplete sentences are an occasional consequence of this system due to software limitations, ambient noise, and hardware issues. Any formal questions or concerns about the content, text, or information contained within the body of this dictation should be directly addressed to the provider for clarification. Problem List Medical Problems: (1) Abdominal pain Status: Chronic (2) Biliary dyskinesia Status: Chronic (3) Chronic constipation Status: Chronic (4) Depression Status: Chronic (5) Depression Status: Chronic (6) Epigastric abdominal pain Status: Resolved (7) Fall down stairs Status: Resolved (8) GERD (gastroesophageal reflux disease) Status: Chronic (9) H. pylori infection Permanent Comment: recurrent Status: Chronic (10) Head pain Status: Resolved (11) Herniated nucleus pulposis of lumbosacral region Permanent Comment: noncompressive L5-S1 disc protrusion on MRI 02/13 Status: Chronic (12) Herniated nucleus pulposus of lumbosacral region Status: Chronic (13) Hx of migraines Status: Chronic (14) Migraine with aura Status: Chronic (15) Nausea & vomiting Status: Resolved (16) Neck pain Status: Resolved (17) Symptoms involving urinary system Status: Resolved (18) Tobacco abuse Status: Chronic (19) Urinary tract infection Status: Resolved Surgical Problems: (1) H/O colonoscopy Permanent Comment: 12/23/2014- 2 polyps, biopsies negative, otherwise normal Status: Chronic (2) H/O esophagogastroduodenoscopy Permanent Comment: 09/09/15: EGD showed gastritis with biopsies positive for H pylori. Specimens obtained for H pylori culture and sensitivity, however, were lost by the lab. Status: Chronic (3) Hx of umbilical hernia repair Status: Chronic (4) Previous section Status: Resolved (5) S/P appendectomy Status: Resolved (6) S/P appendectomy Status: Chronic (7) S/P appy Status: Chronic (8) S/P Status: Chronic (9) S/P section Permanent Comment: 08/21/13 Status: Chronic (10) S/P maggie Status: Chronic (11) S/P cholecystectomy Status: Resolved (12) S/P laparoscopic cholecystectomy Status: Chronic (13) S/P T&A (status post tonsillectomy and adenoidectomy) Status: Chronic (14) S/P tonsillectomy Status: Chronic (15) S/P tooth extraction Permanent Comment: multiple teeth extracted in the past Status: Chronic Current/Historical Medications Scheduled Methylprednisolone (Medrol Dosepak), 0 PO DAILY Allergies Coded Allergies: Prochlorperazine (Verified Allergy, Intermediate, Panic Attack, 02/11/18) Acetaminophen (Verified Allergy, Unknown, unknown, 02/11/18) Polyethylene Glycol (Verified Allergy, Unknown, UNKNOWN, 02/11/18) Sodium Sulfate (Verified Allergy, Unknown, UNKNOWN, 02/11/18) Hydrocodone (Verified Adverse Reaction, Unknown, gi upset/emesis, 02/11/18) pt Uncoded Allergies: BOWEL PREP (Allergy, Unknown, HIVES, 01/10/15) Vital Signs Date Time Temp Pulse Resp B/P (MAP) Pulse Ox O2 Delivery O2 Flow Rate FiO2 02/11/18 13:54 36.5 95 18 106/74 91 Room Air Medications Administered Medications (Trade) Dose Ordered Sig/Lindsey Route Start Time Stop Time Status Last Admin Dose Admin Ketorolac Tromethamine (Toradol Inj) 30 mg NOW STAT IM 02/11/18 14:13 02/11/18 14:21 DC 02/11/18 14:41 30 MG Departure Information Impression Primary Impression: Left hip pain Dispostion Home / Self-Care Condition GOOD Prescriptions Methylprednisolone (MEDROL DOSEPAK) 4 Mg Jorge A 0 PO DAILY, #1 PKT Prov: Lillie Pantoja PA-C 02/11/18 Referrals Edwin Sauer M.D. (PCP) Patient Instructions ED Joint Pain, [facility] Additional Instructions You were seen in the emergency department today for left hip pain. This pain is chronic. X-ray was negative for acute injury or abnormality. You have been prescribed a Medrol Dosepak. This is a steroid which will help decrease your inflammation, redness, and itch. Take the medicine as prescribed. Take the ENTIRE 6 day course of the steroids. No NSAIDs including ibuprofen, Motrin, Advil, Aleve, naproxen, Naprosyn, diclofenac while taking steroids. Ibuprofen(Motrin, Advil) may be used for fever or pain. Use 600mg every six hours as needed. Take with food. Avoid using more than 2400mg in a 24 hour period. Do not use 2400mg per day for more than three consecutive days without physician direction. Prolonged inappropriate use can lead to stomach upset or ulcers. Do not take this medication with any other NSAIDs as outlined above or while on steroids. (AND/OR) Acetaminophen(Tylenol) may be used for fever or pain. Use 1000mg every six hours as needed. Avoid using more than 3000mg in a 24 hour period. Ice compresses for 20 minutes at a time four times daily for 2-3 days. Rest and elevate your injury. Return to the ER immediately for any numbness, tingling, severe pain, extreme swelling in the extremity or as needed. Call [facility], [phone], tomorrow morning to arrange follow up for your injury with Dr. Tate. Follow-up with your primary care physician in 2 to 3 days for a recheck of your current condition.
[2018-02-11 15:31] VITALS: BP 98/60; PULSE 62; O2SAT 97
== END 2018-02-11 15:19 | disposition home or self-care (01) ==
LOC: C.EDB 13:49 → C.EDD 15:19
DX: M25.552 Pain in left hip (principal); G89.29 Other chronic pain; Z79.899 Other long term (current) drug therapy; Z88.8 Allergy status to other drugs, medicaments and biological substances; F17.210 Nicotine dependence, cigarettes, uncomplicated; K82.8 Other specified diseases of gallbladder; K59.09 Other constipation; F32.9 Major depressive disorder, single episode, unspecified; K21.9 Gastro-esophageal reflux disease without esophagitis; M51.27 Other intervertebral disc displacement, lumbosacral region; Z87.440 Personal history of urinary (tract) infections; Z90.49 Acquired absence of other specified parts of digestive tract

== ENCOUNTER → 2018-03-05 | Outpatient (CLI) | payer OTHER, BC ==
--- NOTE | 2018-03-05 15:36 | DIAGNOSTIC IMAGING REPORT ---
DELAYED BONE SCAN AND SPECT IMAGING OF THE LUMBAR SPINE, HIPS AND FEMURS CLINICAL HISTORY: Low back pain. Left hip pain. Left femur pain. Trochanteric bursitis of the left hip. COMPARISON STUDY: MRI of the left hip November 17, 2017 and left hip radiographs February 11, 2018. TECHNIQUE: 25.7 mCi of technetium 99m MDP was injected IV at 10:55 AM on March 05, 2018. 3 hours following injection, imaging of the lumbar spine, pelvis, hips and femurs was performed in multiple projections. SPECT imaging was also performed. FINDINGS: Expected soft tissue and renal uptake is present. No abnormal radiotracer uptake is identified within the lumbar spine, pelvis, sacrum, hips or femurs. Expected radiotracer deposition is noted. IMPRESSION: Unremarkable bone scan, including SPECT imaging of the lumbar spine, hips and femurs. Electronically signed by: Yonatan Lutz M.D. 03/05/2018 3:34 PM Dictated Date/Time: 03/05/2018 3:29 PM
== END | disposition home or self-care (01) ==
LOC: C.NUCL 10:46
PROVIDERS: ATTEND Family Medicine Sports Medicine
DX: M25.552 Pain in left hip (principal); M70.62 Trochanteric bursitis, left hip